=== PATIENT | female | born 1930 | race Caucasian/White ===

== ENCOUNTER 2016-09-11 23:29 | Inpatient (IN) | payer OTHER ==
[~2016-09-11] VITALS: Ht 154.9 cm; Wt 66.1 kg
[2016-09-12] VITALS (16 sets, daily range): BP systolic 93–195; BP diastolic 37–84
--- NOTE | 2016-09-12 04:07 | ED ORDER SUMMARY ---
..... Patient: MERLIN FORD OrderSheet [facility] VisitID: [id number] [place] [address] 85y, F Registration Date/Time: 09/11/2016 ORDER SHEET Weight: 69 kg (measured) Allergies: No Known Drug Allergy GENERAL ORDERS: Chest 1V Urgent (23:47 09/11/2016 Herman GUTIERREZ) (23:58 CHagerty ER Rivet Tosser) Crop Puller (Continuous) (23:47 09/11/2016 Herman GUTIERREZ) (0:09 CHagerty ER Rivet Tosser) Cardiac Panel Stat (23:47 09/11/2016 Herman GUTIERREZ) (Ack 23:58 CHagerty ER Rivet Tosser) (0:58 CHagerty ER Rivet Tosser) BNP Urgent (23:47 09/11/2016 Herman GUTIERREZ) (Ack 23:58 CHagerty ER Rivet Tosser) (0:58 CHagerty ER Rivet Tosser) Oxygen (2 L/min) (NC) (23:47 09/11/2016 Herman GUTIERREZ) (0:09 CHagerty ER Rivet Tosser) Pulse oximeter (23:47 09/11/2016 Herman GUTIERREZ) (0:09 CHagerty ER Rivet Tosser) EKG - ER Stat (23:47 09/11/2016 Herman GUTIERREZ) (0:09 CHagerty ER Rivet Tosser) PT with INR Urgent (03:56 09/12/2016 Herman GUTIERREZ) (Ack 3:58 CHagerty ER Rivet Tosser) (4:03 CHagerty ER Rivet Tosser) TSH Urgent (03:56 09/12/2016 Herman GUTIERREZ) (Ack 3:58 CHagerty ER Rivet Tosser) (4:03 CHagerty ER Rivet Tosser) Digoxin Level Urgent (03:59 09/12/2016 Herman GUTIERREZ) (4:03 CHagerty ER Rivet Tosser) MEDICATION ORDERS: IV FLUIDS: IV Saline Lock (23:47 09/11/2016 Herman GUTIERREZ) (23:50 DBeyoxana R.N.) Diltiazem IV 15 mg (HIGH ALERT MEDICATION, NOW) (04:01 09/12/2016 Herman GUTIERREZ) (4:08 DBeyer R.N.) ORDER SHEET NOTES: [Electronically signed by Darshan Lara R.N. (04:57 09/12/2016)] [Electronically signed by Lakeisha Capps MD (10:32 09/12/2016)] [Electronically locked/signed by Darshan Lara R.N. (04:57 09/12/2016)]
--- NOTE | 2016-09-12 04:07 | ED ORDER SUMMARY ---
..... Patient: MERLIN FORD OrderSheet [facility] VisitID: [id number] [place] [address] 85y, F Registration Date/Time: 09/11/2016 ORDER SHEET Weight: 69 kg (measured) Allergies: No Known Drug Allergy GENERAL ORDERS: Chest 1V Urgent (23:47 09/11/2016 Herman GUTIERREZ) (23:58 CHagerty ER Exercise Rider) Card Room Manager (Continuous) (23:47 09/11/2016 Herman GUTIERREZ) (0:09 CHagerty ER Exercise Rider) Cardiac Panel Stat (23:47 09/11/2016 Herman GUTIERREZ) (Ack 23:58 CHagerty ER Exercise Rider) (0:58 CHagerty ER Exercise Rider) BNP Urgent (23:47 09/11/2016 Herman GUTIERREZ) (Ack 23:58 CHagerty ER Exercise Rider) (0:58 CHagerty ER Exercise Rider) Oxygen (2 L/min) (NC) (23:47 09/11/2016 Herman GUTIERREZ) (0:09 CHagerty ER Exercise Rider) Pulse oximeter (23:47 09/11/2016 Herman GUTIERREZ) (0:09 CHagerty ER Exercise Rider) EKG - ER Stat (23:47 09/11/2016 Herman GUTIERREZ) (0:09 CHagerty ER Exercise Rider) PT with INR Urgent (03:56 09/12/2016 Herman GUTIERREZ) (Ack 3:58 CHagerty ER Exercise Rider) (4:03 CHagerty ER Exercise Rider) TSH Urgent (03:56 09/12/2016 Herman GUTIERREZ) (Ack 3:58 CHagerty ER Exercise Rider) (4:03 CHagerty ER Exercise Rider) Digoxin Level Urgent (03:59 09/12/2016 Herman GUTIERREZ) (4:03 CHagerty ER Exercise Rider) MEDICATION ORDERS: IV FLUIDS: IV Saline Lock (23:47 09/11/2016 Herman GUTIERREZ) (23:50 DBeyoxana R.N.) Diltiazem IV 15 mg (HIGH ALERT MEDICATION, NOW) (04:01 09/12/2016 Herman GUTIERREZ) (4:08 DBeyer R.N.) ORDER SHEET NOTES: [Electronically signed by Darshan Lara R.N. (04:57 09/12/2016)] [Electronically signed by Lakeisha Capps MD (10:32 09/12/2016)] [Electronically locked/signed by Darshan Lara R.N. (04:57 09/12/2016)]
--- NOTE | 2016-09-12 04:07 | ED CLINICAL REPORT ---
Clinical Report - Physicians/Mid Levels Formerly [facility] [address] [place] [address] 09/11/2016 23:37 Patient: MERLIN FORD Time Seen: 2336. Arrived- By ambulance. Historian- patient and EMS personnel. HISTORY OF PRESENT ILLNESS Chief Complaint: DYSPNEA. This started today and is still present. The dyspnea is described as moderate and is worsened by walking and exertion, is improved by rest and is improved with oxygen. No cough, sputum production, fever, sweating episodes or wheezing. No chills, chest pain or discomfort, calf pain or foot swelling. No anxiety, dizziness, tingling, numbness or palpitations. The patient has had dyspnea on exertion and orthopnea. Similar symptoms previously: Occasionally. Recent medical care: Not recently seen/assessed. REVIEW OF SYSTEMS The patient has not had weight loss. No muscle aches, eye irritation, sore throat, nasal discharge or sinus drainage. No nausea, vomiting, abdominal pain, diarrhea or black stools. No bloody stools, headache, fainting episodes, blurred vision or difficulty with urination. No skin rash, enlarged lymph nodes or joint pain. All systems otherwise negative, except as recorded above. PAST HISTORY Problems: Hypothyroidism. Arrhythmia. Congestive Heart Failure. Near Syncope. Diabetes Mellitus. Immunizations. Atrial Fibrillation. Hypertension. Additional Surgeries: Tonsillectomy. Medications: med list from pharmacy*. Carvedilol Oral (Tablet 12.5 mg) 1 tablet, twice daily. Carvedilol Oral (Tablet 6.25 mg) 1 tablet, twice daily. Digoxin Oral (Tablet 125 mcg) 1 tablet, 2x a day. Furosemide Oral 40 mg x3 tabs twice daily. HydrALAZINE HCl Oral (Tablet 25 mg) 1 tablet, twice daily. Isosorbide Mn Er 30mg x1 daily. Levothyroxine Sodium Oral 88 mcg, daily. Pravastatin Sodium Oral 40 mg, at bedtime. Warfarin Sodium Oral (Tablet 1 mg) 2 tablets along with a 1/2 of 5mg tabs , daily. Warfarin Sodium Oral 5 mg, daily. Allergies: No Known Drug Allergy. SOCIAL HISTORY Never smoker. No alcohol use or drug use. ADDITIONAL NOTES The nursing notes have been reviewed. PHYSICAL EXAM Vital Signs: 09/11/2016 23:43 BP: 162/117. HR: 110. RR: 28. O2 saturation: 89%. Temp: 99.1 F. Have been reviewed. Appearance: Alert. Patient in mild distress. Distress appears respiratory. Eyes: Pupils equal, round and reactive to light. Eyes normal inspection. ENT: Nose normal. Neck: Normal inspection. Neck supple. CVS: Tachycardia. Abnormal rhythm, which is irregularly irregular. Heart sounds normal. Pulses normal. Respiratory: Mild respiratory distress with tachypnea. Speaks short phrases. No accessory muscle use, retractions, anxiety, diaphoresis or hyperventilation. Mildly decreased air movement diffusely over both lungs. Breath sounds normal. No wheezes or rales. Abdomen: Soft and nontender. Back: Normal inspection. Skin: Skin warm and dry. Normal skin color. No rash. Normal skin turgor. Extremities: Extremities exhibit normal ROM. No lower extremity edema. Neuro: No motor deficit. No sensory deficit. (Grossly oriented.). LABS, X-RAYS, AND EKG EKG: EKG time: (0900). No acute ischemia. Rate: 110. Atrial fibrillation. Abnormal P waves. Normal QRS complex. Normal axis. Normal QT and QTc. Non-specific ST segment / T wave abnormalities. Prior EKG unavailable. The study has been interpreted contemporaneously by me. The study has been independently viewed by me. The EKG appears to be a good tracing. I agree with and confirm the computer reading of the EKG. Rhythm Strip #1: Time: (2340). Rate= 94. Atrial fibrillation. Narrow QRS complexes. Irregularly irregular rhythm. No ectopy. Conduction normal. Normal ST segments and T waves. The study was interpreted by me. Chest X-ray: Borderline cardiomegaly. Mediastinum normal. Great vessels normal. Soft tissues normal. No infiltrate. No fracture. No bony lesion present. (Mild CHF.). Views: AP (portable). Technique: good. The X-rays were independently viewed by me and interpreted contemporaneously by me. Prior films were not available for comparison. Laboratory Tests: CHEM 13 PANEL: (KARIN: 09/12/2016 00:30) ( MsgRcvd 09/12/2016 01:05) Final results Test Result Flag Units (Reference) GLUCOSE 208 H mg/dL (70-110) BUN 27 H mg/dL (7-18) CREATININE 1.3 mg/dL (0.6-1.3) Estimated GFR 41.48 mL/min Estimated GFR- 50.27 mL/min Note: Persistent reduction over 3 months in eGFR<60 mL/min/1.73 m2 defines CKD. Patients with eGFR values>=60 mL/min/1.73 m2 may also have CKD if evidence ofpersistent proteinuria. Additional information may be foundat www.[email or web address].org. SODIUM 135 L mmol/L (136-145) POTASSIUM 4.5 mmol/L (3.5-5.1) CHLORIDE 98 mmol/L (98-107) CARBON DIOXIDE 29 mmol/L (21-32) CALCIUM 8.4 L mg/dL (8.5-10.1) TOTAL PROTEIN 7.3 g/dL (6.4-8.2) ALBUMIN 3.3 g/dL (3.3-5.0) BILIRUBIN, TOTAL 0.9 mg/dL (0.0-1.0) ALKALINE PHOSPHATASE 106 U/L (46-116) AST (SGOT) 51 H U/L (15-37) ALT (SGPT) 40 U/L (12-78) MAGNESIUM 1.9 mg/dL (1.8-2.4) CPK 134 U/L (24-260) TROPONIN I 0.07 ng/mL (0.00-1.5) TROPONIN REFERENCE RANGE:<0.1 NEGATIVE0.1-1.5 INDETERMINANT>1.5 POSITIVE CBC w Diff: (KARIN: 09/11/2016 00:30) ( MsgRcvd 09/12/2016 00:48) Final results Test Result Flag Units (Reference) WHITE BLOOD COUNT 6.0 K/uL (4.5-11.5) RED BLOOD COUNT 4.00 M/uL (4.00-5.20) HEMOGLOBIN 11.1 L gm/dL (12.0-16.0) HEMATOCRIT 38.5 % (36.0-46.0) MEAN CELL VOLUME 96 fL (80-100) MEAN CORPUSCULAR HGB 28 pg (26-34) MEAN CORPUSCULAR HGB CONC 29 L g/dL (31-37) RED CELL DISTRIBUTION WIDTH 17.6 H % (11.6-14.8) PLATELET COUNT 38 L K/uL (150-400) LYMPH % 11.2 L % (25-40) MONO % 5.4 % (3-14) GRANULOCYTE % 83.4 (53-90) BNP: (KARIN: 09/11/2016 23:47) ( MsgRcvd 09/12/2016 01:06) Final results Test Result Flag Units (Reference) B-TYPE NATRIURETIC PEPTIDE 314 H pg/ml (5-100) INR 13.8 . Pulse Oximetry: 09/11/2016 23:43 O2 saturation: 89%. (FIO2 - room air). Interpretation: normal. PROGRESS AND PROCEDURES Course of Care: Pt had been given Lasix and SL NTG x 2 sprays, en-route. I did not intervene further, as pt was in minimal respiratory distress. Pt was observed in the ED, and worked up for her sx. BNP was modestly elevated, and CXR did show signs of mild CHF. Pt's BP remained high throughout her stay in the ED, and I did give her a dose of Diltiazem for this, as well as her mild RVR. Pt was found to be comfortable in bed, so she was gotten up to do a road test on RA. Pt did desat to 81% with ambulation, and was noted to have labored respirations and a sense of dyspnea for several minutes after walking to the bathroom and coming back to bed. At this point, I did feel the pt should be admitted for observation. After my conversation with Dr. Alan, pt's INR, which had been pending at the time, did come back at 13.8. These results were called up to the floor by our department. Discussed case with hospitalist, (Waqas). Reviewed test results and need for additional work-up. Agreed upon treatment plan and decision to admit. Health care provider will see patient in hospital. Patient and family counseled in person regarding the patient's stable but serious condition, test results, diagnosis and need for admission. Concerns were addressed. Old medical records reviewed. Disposition: Admitted to Acute Care. Condition: stable and serious. CLINICAL IMPRESSION Chronic mild systolic, congestive heart failure (with acute exacerbation). Chronic atrial fibrillation with uncontrolled rate. (with mild RVR). Accidental coumadin toxicity. Hypoxia. (Electronically signed by Lakeisha Capps MD 09/12/2016 10:32)
--- NOTE | 2016-09-12 04:07 | ED NURSING NOTES ---
Clinical Report - Nurses [facility] [address] [place] [address] 09/11/2016 23:37 [id number] Triage time 23:44 Sep 11 2016. Acuity: LEVEL 2. Chief Complaint: SHORTNESS OF BREATH and DIFFICULTY BREATHING. ( 02 sat 89% on RA placed on 3L increased to 93%). --23:48 Darshan Lara R.N. 23:43 09/11/16. BP: 162/117. HR: 110. RR: 28. O2 saturation: 89%. Temp: 99.1 F. Pain level now 0/10. --23:48 Darshan Lara R.N. Weight: 69 kg measured. Height/Length: 69 inches. BMI: 22.5. --23:48 Darshan Lara R.N. Medications med list from pharmacy*. Carvedilol Oral (Tablet 12.5 mg) 1 tablet, twice daily. Carvedilol Oral (Tablet 6.25 mg) 1 tablet, twice daily. Digoxin Oral (Tablet 125 mcg) 1 tablet, 2x a day. Furosemide Oral 40 mg x3 tabs twice daily. HydrALAZINE HCl Oral (Tablet 25 mg) 1 tablet, twice daily. Isosorbide Mn Er 30mg x1 daily. Levothyroxine Sodium Oral 88 mcg, daily. Pravastatin Sodium Oral 40 mg, at bedtime. Warfarin Sodium Oral (Tablet 1 mg) 2 tablets along with a 1/2 of 5mg tabs , daily. Warfarin Sodium Oral 5 mg, daily. --23:44 Darshan Lara R.N. Allergies No Known Drug Allergy. --23:44 Darshan Lara R.N. History Arrived by EMS. Historian: patient. Onset. (1 days). 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 (lasix 40mg). SOCIAL HX: Never smoker. No alcohol use or drug use. --23:48 Darshan aLra R.N. PROBLEMS: Muscle Spasm. Leukocytosis. Hypothyroidism. Arrhythmia. Congestive Heart Failure. Near Syncope. Pneumonia. Diabetes Mellitus. Immunizations. Atrial Fibrillation. Hypertension. Abnormal EKG. --23:45 Darshan Lara R.N. Assessment The patient states feels the same. --23:48 Darshan Lara R.N. Interventions ID band on patient. To treatment room. --23:48 Darshan Lara R.N. PHYSICAL ASSESSMENT 00:13 09/12/16. GENERAL / NEURO / PSYCH: Alert. Oriented X 4. Appears in no acute distress. RESPIRATORY: Mild respiratory distress. The patient can speak in full sentences. Decreased breath sounds. CVS: Cardiac rhythm: atrial pacing. Capillary refill less than 2 seconds. GI / : Abdomen nontender. SKIN: Skin is warm and dry. --00:13 Darshan Lara R.N. NURSING PROGRESS NOTES 23:35 09/11/2016 Site #1 started prior to arrival by EMS via IV in the right antecubital space with an 18g angiocath. --23:50 Darshan Lara R.N. EKG time: (8). EKG was ordered, performed by a tech and shown to the ED physician. --00:10 Tl Morejon, ER Hand Woodworking Sander ( Pt asleep in bed wakes to verbal stimuli, blood draw by RN). --00:35 Darshan Lara R.N. 00:34 09/12/16. BP: 143/83. HR: 95. RR: 18. O2 saturation: 98%. --00:35 Darshan Lara R.N. 01:55 09/12/16. BP: 152/73. HR: 90. O2 saturation: 98%. --01:56 Darshan Lara R.N. 02:27 09/12/16. BP: 157/84. HR: 80. RR: 18. O2 saturation: 99%. --02:27 Darshan Lara R.N. ( Pt ambulated to bathroom with portable 02, dropped to 81% , pt became short of breath hr increased to 120s, returned to room and placed on supplemental 02 and her oxygen saturation increased to 96%). --03:57 Darshan Lara R.N. 03:55 09/12/16. BP: 173/131. HR: 98. RR: 26. O2 saturation: 98%. Pain level now 0/10. --03:57 Darshan Lara R.N. 04:08 09/12/2016 Diltiazem IVP 15 mg given over 5 minute(s) via site #1. Allergies verified and confirmed 5 rights. IV patency established. IV site checked: no pain, redness, or swelling. IV flushed thoroughly pre- and post-medication administration. IVP given by RN. --04:08 Darshan Lara R.N. 04:11 09/12/16. BP: 183/107. HR: 87. --04:12 Darshan Lara R.N. 04:24 09/12/16. BP: 163/76. HR: 75. RR: 18. O2 saturation: 96%. Pain level now 0/10. --04:24 Darshan Lara R.N. DISPOSITION / DISCHARGE 04:26 09/12/16. ( Pt to be admitted for hypoxia on exertion, 02 sat decreased to 81% on ambulation. pt alert and oriented x4 able to transfer on her own). --04:26 Darshan Lara R.N. 04:26 09/12/16. BP: 163/76. HR: 75. RR: 18. O2 saturation: 96%. Temp: 98 F. Pain level now 0/10. --04:26 Darshan Lara R.N. 04:31 09/12/2016 Site #[address] upon admission. Good blood return present. Flushed with saline; flushes easily. --04:31 Darshan Lara R.N. Departure time: 04:Sep 12 2016. Report was given to a nurse via a phone call. Report included patient's care, treatment, medications, reviewed medication reconcilliation, and condition (including any recent changes or anticipated changes). All questions were answered. Report was acknowledged and care was transferred. ( gcs on discharge 15). --04:31 Darshan Lara R.N. Locked/Released at 09/12/2016 4:57 by Darshan Lara R.N.
--- NOTE | 2016-09-12 04:07 | ED NURSING NOTES ---
Clinical Report - Nurses [facility] [address] [place] [address] 09/11/2016 23:37 [id number] Triage time 23:44 Sep 11 2016. Acuity: LEVEL 2. Chief Complaint: SHORTNESS OF BREATH and DIFFICULTY BREATHING. ( 02 sat 89% on RA placed on 3L increased to 93%). --23:48 Darshan Lara R.N. 23:43 09/11/16. BP: 162/117. HR: 110. RR: 28. O2 saturation: 89%. Temp: 99.1 F. Pain level now 0/10. --23:48 Darshan Lara R.N. Weight: 69 kg measured. Height/Length: 69 inches. BMI: 22.5. --23:48 Darshan Lara R.N. Medications med list from pharmacy*. Carvedilol Oral (Tablet 12.5 mg) 1 tablet, twice daily. Carvedilol Oral (Tablet 6.25 mg) 1 tablet, twice daily. Digoxin Oral (Tablet 125 mcg) 1 tablet, 2x a day. Furosemide Oral 40 mg x3 tabs twice daily. HydrALAZINE HCl Oral (Tablet 25 mg) 1 tablet, twice daily. Isosorbide Mn Er 30mg x1 daily. Levothyroxine Sodium Oral 88 mcg, daily. Pravastatin Sodium Oral 40 mg, at bedtime. Warfarin Sodium Oral (Tablet 1 mg) 2 tablets along with a 1/2 of 5mg tabs , daily. Warfarin Sodium Oral 5 mg, daily. --23:44 Darshan Lara R.N. Allergies No Known Drug Allergy. --23:44 Darshan Lara R.N. History Arrived by EMS. Historian: patient. Onset. (1 days). 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 (lasix 40mg). SOCIAL HX: Never smoker. No alcohol use or drug use. --23:48 Darshan Lara R.N. PROBLEMS: Muscle Spasm. Leukocytosis. Hypothyroidism. Arrhythmia. Congestive Heart Failure. Near Syncope. Pneumonia. Diabetes Mellitus. Immunizations. Atrial Fibrillation. Hypertension. Abnormal EKG. --23:45 Darshan Lara R.N. Assessment The patient states feels the same. --23:48 Darshan Lara R.N. Interventions ID band on patient. To treatment room. --23:48 Darshan Lara R.N. PHYSICAL ASSESSMENT 00:13 09/12/16. GENERAL / NEURO / PSYCH: Alert. Oriented X 4. Appears in no acute distress. RESPIRATORY: Mild respiratory distress. The patient can speak in full sentences. Decreased breath sounds. CVS: Cardiac rhythm: atrial pacing. Capillary refill less than 2 seconds. GI / : Abdomen nontender. SKIN: Skin is warm and dry. --00:13 Darshan Lara R.N. NURSING PROGRESS NOTES 23:35 09/11/2016 Site #1 started prior to arrival by EMS via IV in the right antecubital space with an 18g angiocath. --23:50 Darshan Lara R.N. EKG time: (8). EKG was ordered, performed by a tech and shown to the ED physician. --00:10 Tl Morejon, ER Hip Hop Dancer ( Pt asleep in bed wakes to verbal stimuli, blood draw by RN). --00:35 Darshan Lara R.N. 00:34 09/12/16. BP: 143/83. HR: 95. RR: 18. O2 saturation: 98%. --00:35 Darshan Lara R.N. 01:55 09/12/16. BP: 152/73. HR: 90. O2 saturation: 98%. --01:56 Darshan Lara R.N. 02:27 09/12/16. BP: 157/84. HR: 80. RR: 18. O2 saturation: 99%. --02:27 Darshan Lara R.N. ( Pt ambulated to bathroom with portable 02, dropped to 81% , pt became short of breath hr increased to 120s, returned to room and placed on supplemental 02 and her oxygen saturation increased to 96%). --03:57 Darshan Lara R.N. 03:55 09/12/16. BP: 173/131. HR: 98. RR: 26. O2 saturation: 98%. Pain level now 0/10. --03:57 Darshan Lara R.N. 04:08 09/12/2016 Diltiazem IVP 15 mg given over 5 minute(s) via site #1. Allergies verified and confirmed 5 rights. IV patency established. IV site checked: no pain, redness, or swelling. IV flushed thoroughly pre- and post-medication administration. IVP given by RN. --04:08 Darshan Lara R.N. 04:11 09/12/16. BP: 183/107. HR: 87. --04:12 Darshan Lara R.N. 04:24 09/12/16. BP: 163/76. HR: 75. RR: 18. O2 saturation: 96%. Pain level now 0/10. --04:24 Darshan Lara R.N. DISPOSITION / DISCHARGE 04:26 09/12/16. ( Pt to be admitted for hypoxia on exertion, 02 sat decreased to 81% on ambulation. pt alert and oriented x4 able to transfer on her own). --04:26 Darshan Lara R.N. 04:26 09/12/16. BP: 163/76. HR: 75. RR: 18. O2 saturation: 96%. Temp: 98 F. Pain level now 0/10. --04:26 Darshan Lara R.N. 04:31 09/12/2016 Site #[address] upon admission. Good blood return present. Flushed with saline; flushes easily. --04:31 Darshan Lara R.N. Departure time: 04:Sep 12 2016. Report was given to a nurse via a phone call. Report included patient's care, treatment, medications, reviewed medication reconcilliation, and condition (including any recent changes or anticipated changes). All questions were answered. Report was acknowledged and care was transferred. ( gcs on discharge 15). --04:31 Darshan Lara R.N. Locked/Released at 09/12/2016 4:57 by Darshan Lara R.N.
--- NOTE | 2016-09-12 08:47 | History & Physical Report ---
Admission Admit Date 09/12/16 Information Source Information Source: Self Reliability: Good History Chief Complaint SOB History of Present Illness 85 y/o female patient with PMH of Diabetes Mellitus, Hypertension, H/O CAD with stent palcement, atrial fibrillation on coumadin, hypothyroidism, cardiomyopathy BIBA to [facility] ED with the complaint of SOB. On intial eval in ED she was found to have acute exacerabtion of CHF, with uncontrolled hypertension and supratherapeutic INR of 13. She recieved 1 dose of lasix in ED. On floor she recieved IV vit k and hydralazine, and 1 unit of FFP. History of present illness goes like this, as per patient she was Fine until 2 days back when she started to to feel sick with sore throat and feverish sensation she thought she got flu as her daughter is sick with influenza. Then yesterday she started feeling SOB and it has gotten worse and she is brought to [facility] ED. She also says that she had chest pain day before yesterday which was mild left sided chest pain, lasted for a while and resolved on its own. She c/o dry cough. She deneis any other symptoms. Patient History 1. Diabetes mellitus 2. Hypertension 3. Atrial fibrillation 4. CHF (congestive heart failure) 5. Hyperlipidemia Social History Lives with daughter community never smoked no alcohol no drugs Family History MOTHER (CAD). FATHER (lung cancer). Medications and Allergies Medications Current Medications Sig/Nilson Start time Last Medication Dose Route Stop Time Status Admin Pantoprazole Sodium 40 MG DAILY@0600 09/13 0600 AC IV Insulin Glargine 25 UNITS QHS 09/12 2100 AC SC Atorvastatin Calcium 10 MG QPM 09/12 1800 AC PO Digoxin 125 MCG DAILY@1400 09/12 1400 AC PO Insulin Human Lispro See Dose ACHS 09/12 1130 AC Insts (1) SC Candesartan Cilexetil 16 MG DAILY 09/12 1000 AC PO Carvedilol 6.25 MG BID 09/12 1000 AC PO Furosemide 40 MG DIUB 09/12 1000 AC IV Hydralazine HCl 25 MG BID 09/12 1000 AC PO Levothyroxine Sodium 88 MCG DAILY@0600 09/12 1000 AC PO Non-Formulary 40 MG DAILY 09/12 0914 CAN Medication PO Non-Formulary 100 MG DAILY 09/12 0913 CAN Medication PO Isosorbide 30 MG DAILY 09/12 910 AC Mononitrate PO Acetaminophen 650 MG Q4H PRN 09/12 900 AC PO Albuterol/Ipratropium 3 ML Q6H PRN 09/12 900 AC 09/12 IN 922 Docusate Sodium 100 MG BID 09/12 900 AC PO Morphine Sulfate 1 MG Q2H PRN 09/12 900 AC IV Naloxone HCl 0.4 MG PRN PRN 09/12 900 AC IV Ondansetron HCl 4 MG Q6H PRN 09/12 900 AC IV Sodium Chloride 1,000 ML ASDIRECTED 09/12 900 AC IV Hydralazine HCl 10 MG Q6H PRN 09/12 545 AC 09/12 IV 0547 Dose Instructions: (1)Insulin Human Lispro: LOW DOSE SLIDING SCALE Allergies Coded Allergies: No Known Drug Allergy (09/12/16) Review of Systems Constitutional Fever. Denies: Chills, Sweats. ENT Denies: Nasal Congestion, Mouth Pain, Throat Pain, Throat Swelling. Respiratory Cough, Dry, SOB w/exertion, Pleuritic Pain. Denies: Wheezing, Hemoptysis. Cardiovascular Orthopnea, PND, Edema. Denies: Chest Pain, Palpitations. Gastrointestinal Denies: Nausea, Vomiting, Abdominal Pain, Diarrhea, Constipation. Genitourinary Denies: Dysuria, Frequency, Incontinence. Musculoskeletal Back Pain. Denies: Arm Pain. Neurological Denies: Weakness, Numbness, Incoordination, Change in speech, Confusion, Seizures. Physical Exam Vital Signs / I&Os Vital Signs Date Time Temp Pulse Resp B/P Pulse O2 O2 Flow FiO2 Ox Delivery Rate 09/12 0751 97.7 09/12 0747 96 22 156/64 99 Nasal 1.5 Cannula 09/12 0642 97.9 95 24 141/56 99 Nasal 2.0 Cannula 09/12 0624 98.1 105 20 156/58 98 Nasal 2.0 Cannula 09/12 0610 82 139/40 09/12 0558 Nasal 2.0 Cannula 09/12 0547 184/63 09/12 0520 2.0 09/12 0516 82 184/63 09/12 0455 98.1 83 20 195/59 95 Nasal 2.0 Cannula General Appearance Alert, Oriented X3, No acute distress HEENT PERRLA, Moist mucous membranes Lungs bilateral basal crackles Cardiovascular Regular rate and rhythm, Normal S1 and S2 Abdomen Soft, No tenderness, No guarding, No rebound Extremities trace oedema Neurological No lateralizing signs LAB Results Laboratory Tests 09/11 09/12 09/12 09/12 0407 0030 0030 0918 Chemistry Plasma Sodium (136 - 145 mmol/L) 135 Plasma Potassium (3.5 - 5.1 mmol/L) 4.5 Plasma Chloride (98 - 107 mmol/L) 98 CO2 (Enzymatic) (21 - 32 mmol/L) 29 BUN (7 - 18 mg/dL) 27 Creatinine (0.6 - 1.3 mg/dL) 1.3 Est GFR ( Amer) (mL/min) 50.27 Est GFR (Non-Af Amer) (mL/min) 41.48 Glucose (70 - 110 mg/dL) 208 Plasma Calcium (8.5 - 10.1 mg/dL) 8.4 Plasma Magnesium (1.8 - 2.4 mg/dL) 1.9 Total Bilirubin (0.0 - 1.0 mg/dL) 0.9 AST (15 - 37 U/L) 51 ALT (12 - 78 U/L) 40 Alkaline Phosphatase (46 - 116 U/L) 106 Creatine Kinase (24 - 260 U/L) 134 166 Troponin (0.00 - 1.5 ng/mL) 0.07 0.10 B-Natriuretic Peptide (5 - 100 pg/ml) 314 Total Protein (6.4 - 8.2 g/dL) 7.3 Albumin (3.3 - 5.0 g/dL) 3.3 TSH 3rd Generation (0.30 - 3.74 uIU/mL) 0.815 Coagulation INR (0.8 - 1.2) 13.8 1.5 Toxicology Digoxin (0.9 - 2.0 ng/mL) 0.6 Microbiology Date/Time Procedure - Status Source Growth 09/12 0455 MRSA Screen - RECD NASAL Imaging DATE OF EXAM(S): 09/11/16 PROCEDURE: XR CHEST 1 VIEW INDICATION: SHORTNESS OF BREATH IMPRESSION: 1. Chronically coarse interstitial markings. This may reflect mild, chronic CHF. 2. Mild cardiomegaly. Assessment and Plan Problem List 1. Acute respiratory failure with hypoxia Plan moniotr in ccu Ptaient is on 5 litres of oxygen through nasal canula c/w oxygen supplements keep sats >95% pulse oximetry monitoring 2. Acute exacerbation of CHF (congestive heart failure) Plan Start lasix 40 mg BID c/w imdur, hydralazine, coozar and coreg r/o acute ischemia serial trops and development associate daily weight and I/o's c/w supplemental oxygen echo in am 3. Supratherapeutic INR Plan Patient admitted with INR of 13 recieved vit K 5mg and 1 Unit of FFP, repeat INR 1.5 Resume home dose coumadin from tonight 4. Atrial fibrillation Status Chronic Plan afib with rate control admited with high INR, which is correct current INR is 1.5 can resume home dose of coumadin from tonight c/w rate control meds 5. Hypertension Plan BP on lower side monitor for now hold BP meds if SBP<100, keep MAP >95% 6. Diabetes mellitus Plan Monitor BS qachs c/w home dose of lantus with sliding scale insulin check HbA1c 7. Hyperlipidemia Plan c/w statin check lipid profile DVT Px: SCD's GI px: PPI Patient's condition: Guarded Anticipated discharge: 2-3 days 8. CKD (chronic kidney disease) stage 2, GFR 60-89 ml/min Plan stable monitor kidney function I/o's daily weights E&M Codes Admission: Inpt-High/96320
--- NOTE | 2016-09-12 09:03 | DIAGNOSTIC IMAGING REPORT ---
PROCEDURE: XR CHEST 1 VIEW INDICATION: SHORTNESS OF BREATH TECHNIQUE: Single view chest. 2352 hours COMPARISON: 03/31/2016 FINDINGS: Mild cardiomegaly. Atherosclerotic, normal caliber thoracic aorta. Slight central vascular prominence. Mild diffuse coarsening of the interstitial markings. Clearance of prior right lower lung retrocardiac pneumonia. No dense consolidations, effusions, or pneumothorax. Intact osseous structures. IMPRESSION: 1. Chronically coarse interstitial markings. This may reflect mild, chronic CHF. 2. Mild cardiomegaly.
--- NOTE | 2016-09-12 10:33 | ED DISCHARGE INSTRUCTIONS ---
Patient: MERLIN FORD General Instructions [facility] VisitID: [id number] [address] [place] [address] 85y, F Registration Date/Time: 09/11/2016 Chronic mild systolic, congestive heart failure (with acute exacerbation). Chronic atrial fibrillation with uncontrolled rate. (with mild RVR). Accidental coumadin toxicity. Hypoxia. (Electronically signed by Lakeisha Capps MD 09/12/2016 10:32)
--- NOTE | 2016-09-12 10:33 | ED DISCHARGE INSTRUCTIONS ---
Patient: MERLIN FORD General Instructions [facility] VisitID: [id number] [address] [place] [address] 85y, F Registration Date/Time: 09/11/2016 Chronic mild systolic, congestive heart failure (with acute exacerbation). Chronic atrial fibrillation with uncontrolled rate. (with mild RVR). Accidental coumadin toxicity. Hypoxia. (Electronically signed by Lakeisha Capps MD 09/12/2016 10:32)
--- NOTE | 2016-09-12 10:33 | ED MED RECONCILIATION SUMMARY ---
Patient: MERLIN FORD Medication Reconciliation Report [facility] VisitID: [id number] [address] [place] [address] 85y, F Registration Date/Time: 09/11/2016 Weight: 69 kg Height/Length: 69 in. BMI: 22.5 ALLERGIES: No Known Drug Allergy The patient's Home Medications are listed below: THE FOLLOWING MEDICATIONS NEED TO BE RECONCILED: med list from pharmacy* Carvedilol Oral (12.5 mg) 1 tablet, twice daily Carvedilol Oral (6.25 mg) 1 tablet, twice daily Digoxin Oral (125 mcg) 1 tablet, 2x a day Furosemide Oral 40 mg x3 tabs twice daily HydrALAZINE HCl Oral (25 mg) 1 tablet, twice daily Isosorbide Mn Er 30mg x1 daily Levothyroxine Sodium Oral 88 mcg, daily Pravastatin Sodium Oral 40 mg, at bedtime Warfarin Sodium Oral (1 mg) 2 tablets along with a 1/2 of 5mg tabs , daily Warfarin Sodium Oral 5 mg, daily The source(s) of the original Home Medication information: Not obtained. The following Medications were given to the patient in the Emergency Department: Diltiazem [IVP] IVP 15 mg, administered: 09/12/2016 4:08:00 AM The following Medications were prescribed to the patient: None.
--- NOTE | 2016-09-12 10:33 | ED MAR SUMMARY ---
..... Medication Administration Record [facility] [address] [place] [address] Patient: MERLIN FORD Visit ID: [id number] 85y, F Weight: 69.0 kg Height/Length: 69 in BMI: 22.5 ALLERGIES: No Known Drug Allergy Given 04:08 09/12/2016 Darshan Lara R.N. Medication Administered: DILTIAZEM [IVP], Dose: 15 mg IVP over 5 minute(s), Site: #1 right AC. Medication Ordered: Diltiazem IV 15 mg (HIGH ALERT MEDICATION, NOW).
--- NOTE | 2016-09-12 10:33 | ED MED RECONCILIATION SUMMARY ---
Patient: MERLIN FORD Medication Reconciliation Report [facility] VisitID: [id number] [address] [place] [address] 85y, F Registration Date/Time: 09/11/2016 Weight: 69 kg Height/Length: 69 in. BMI: 22.5 ALLERGIES: No Known Drug Allergy The patient's Home Medications are listed below: THE FOLLOWING MEDICATIONS NEED TO BE RECONCILED: med list from pharmacy* Carvedilol Oral (12.5 mg) 1 tablet, twice daily Carvedilol Oral (6.25 mg) 1 tablet, twice daily Digoxin Oral (125 mcg) 1 tablet, 2x a day Furosemide Oral 40 mg x3 tabs twice daily HydrALAZINE HCl Oral (25 mg) 1 tablet, twice daily Isosorbide Mn Er 30mg x1 daily Levothyroxine Sodium Oral 88 mcg, daily Pravastatin Sodium Oral 40 mg, at bedtime Warfarin Sodium Oral (1 mg) 2 tablets along with a 1/2 of 5mg tabs , daily Warfarin Sodium Oral 5 mg, daily The source(s) of the original Home Medication information: Not obtained. The following Medications were given to the patient in the Emergency Department: Diltiazem [IVP] IVP 15 mg, administered: 09/12/2016 4:08:00 AM The following Medications were prescribed to the patient: None.
--- NOTE | 2016-09-12 10:33 | ED MAR SUMMARY ---
..... Medication Administration Record [facility] [address] [place] [address] Patient: MERLIN FORD Visit ID: [id number] 85y, F Weight: 69.0 kg Height/Length: 69 in BMI: 22.5 ALLERGIES: No Known Drug Allergy Given 04:08 09/12/2016 Darshan Lara R.N. Medication Administered: DILTIAZEM [IVP], Dose: 15 mg IVP over 5 minute(s), Site: #1 right AC. Medication Ordered: Diltiazem IV 15 mg (HIGH ALERT MEDICATION, NOW).
[2016-09-13] VITALS (15 sets, daily range): BP systolic 109–156; BP diastolic 38–81
[2016-09-13] MEDS ORDERED: CARVEDILOL6.25 MG PO (13:01)
[2016-09-13] MEDS ORDERED: CARVEDILOL12.5 MG PO (13:01)
[2016-09-13] MEDS ORDERED: DIGOXIN0.125 MG PO ×2 (13:02→14:14)
[2016-09-13] MEDS ORDERED: ISOSORBIDE MONO30 MG PO (13:03)
[2016-09-13] MEDS ORDERED: HYDRALAZINE HCL25 MG PO (13:03)
[2016-09-13] MEDS ORDERED: FUROSEMIDE40 MG PO (13:03)
[2016-09-13] MEDS ORDERED: PRAVASTATIN SOD40 MG PO (13:04)
[2016-09-13] MEDS ORDERED: LEVO-T88 MCG PO (13:04)
[2016-09-13] MEDS ORDERED: COUMADIN2.5 MG PO (13:05)
--- NOTE | 2016-09-13 13:12 | DIAGNOSTIC IMAGING REPORT ---
REFERRING PHYSICIAN/PROVIDER: Lakeisha Capps Md CONSULTING ROUGH ROUNDER MACHINE: Remberto Kaiser MD PROCEDURE: 2D echo, M-mode and complete color and flow Doppler interrogation TECHNICAL QUALITY: Technically difficult INDICATION: Heart failure with aortic stenosis INTERPRETATIONS: CHAMBERS: LEFT ATRIUM: Left atrial enlargement. Possible interatrial communication by color Doppler. LEFT VENTRICLE: Small left ventricle, concentric left ventricular hypertrophy. Indeterminate diastology. EF visually estimated to be 60-65%. No wall motion abnormalities. RIGHT ATRIUM: Normal right atrial size. RIGHT VENTRICLE: Normal right ventricular size. VALVES: All valves nonrheumatic unless otherwise indicated. AORTIC VALVE: Heavily calcified aortic valve with severely restricted leaflet motion. Severe aortic stenosis with peak velocity 4.3 m/s, mean gradient 44 mmHg, calculated aortic valve area 0.48 cm2. MITRAL VALVE: Mitral annular calcification. Trace mitral regurgitation, no mitral stenosis. TRICUSPID VALVE: Mild tricuspid regurgitation. Unable to calculate pulmonary artery systolic pressure due to inadequate tricuspid regurgitation jet. PULMONIC VALVE: Trace pulmonic regurgitation. MISCELLANEOUS: No pericardial effusion. HEMODYNAMICS: Dilated IVC with <50% inspiratory collapse. CVP 10-15 mmHg IMPRESSION: Underlying rhythm is atrial fibrillation. 1. Small, concentrically hypertrophied left ventricle with normal systolic function. EF 60-65%. No wall motion abnormalities. 2. Indeterminate diastolic function, due to underlying arrhythmia. 3. Severe aortic stenosis with peak velocity of 4.3 m/s, mean gradient 44 mmHg, and calculated aortic valve area of 0.48 cm2. 4. Mitral annular calcification. 5. Normal right ventricular size and systolic function. 6. Unable to estimate pulmonary artery systolic pressure due to inadequate tricuspid regurgitation jet. 7. Possible interatrial communication concerning for PFO by color Doppler, clinical correlation advised. 8. CVP 10-15 mmHg.
--- NOTE | 2016-09-13 19:58 | Progress Note ---
Subjective General patient is seen at the bedside, c/o sob with cough Refused new anticoagulation and wants to to continue on coumadin Constitutional Denies: Fever, Chills, Sweats, Weakness. Respiratory Cough, Dry, SOB w/exertion, Wheezing. Cardiovascular Orthopnea, Edema. Denies: Chest Pain, Palpitations, PND. Gastrointestinal Denies: Nausea, Vomiting, Abdominal Pain, Diarrhea, Constipation. Genitourinary Denies: Dysuria, Frequency, Incontinence, Hematuria. Physical Exam Vital Signs / I&Os Vital Signs Date Time Temp Pulse Resp B/P Pulse O2 O2 Flow FiO2 Ox Delivery Rate 09/13 1815 98.6 82 30 130/46 97 Nasal 2.0 Cannula 09/13 1413 83 09/13 1350 98 27 121/44 98 Nasal 2.0 Cannula 09/13 1141 94 22 142/69 98 Nasal 2.0 Cannula 09/13 1000 98.2 79 22 115/53 100 Nasal 2.0 Cannula 09/13 0900 88 24 109/41 97 Nasal 2.0 Cannula 09/13 0820 Nasal 2.0 Cannula 09/13 0808 89 09/13 0808 156/59 09/13 0804 2.0 09/13 0800 94 23 156/59 97 Nasal 2.0 Cannula 09/13 0700 90 25 141/47 99 OXYMASK 2.0 09/13 0652 26 99 OXYMASK 2.0 09/13 0600 90 25 141/44 98 Mask 3.5 09/13 0514 99.0 87 25 138/54 98 09/13 0458 5.0 09/13 0408 86 24 136/45 98 Mask 5.0 09/13 0300 84 134/42 99 09/13 0200 104 28 123/38 99 Mask 5.0 09/13 0141 103 09/13 0100 137/60 09/13 0055 5.0 09/13 0048 2.0 09/13 0013 65 32 149/81 99 Nasal 2.0 Cannula 09/12 2312 99.5 79 28 141/47 99 Nasal 2.0 Cannula 09/128 100.0 95 31 146/84 96 Nasal 2.0 Cannula 09/12 2104 Nasal 2.0 Cannula 09/12 2101 98.2 103 24 173/57 99 Nasal 2.0 Cannula 09/12 2056 152/76 09/12 2055 109 09/12 2034 2.0 09/12 2003 104 I&O 09/12 0800 09/12 1600 09/13 0000 Intake Total 500 Output Total 700 575 Balance -200 -575 General Appearance Alert, Oriented X3, No acute distress HEENT PERRLA, Moist mucous membranes Lungs basal crackles present Neck Supple Cardiovascular irregular heart beat Abdomen Soft, No tenderness, No guarding Extremities oedema present Neurological No lateralizing signs LAB Results Laboratory Tests 09/13 09/13 09/13 09/13 0050 0450 0450 0450 Chemistry Plasma Sodium (136 - 145 mmol/L) 137 Plasma Potassium (3.5 - 5.1 mmol/L) 3.9 Plasma Chloride (98 - 107 mmol/L) 100 CO2 (Enzymatic) (21 - 32 mmol/L) 33 BUN (7 - 18 mg/dL) 38 Creatinine (0.6 - 1.3 mg/dL) 1.3 Est GFR ( Amer) (mL/min) 50.27 Est GFR (Non-Af Amer) (mL/min) 41.48 Glucose (70 - 110 mg/dL) 226 Hemoglobin A1c % (4.5 - 6.2 %) 9.3 Plasma Calcium (8.5 - 10.1 mg/dL) 8.2 Plasma Magnesium (1.8 - 2.4 mg/dL) 2.0 Creatine Kinase (24 - 260 U/L) 166 Troponin (0.00 - 1.5 ng/mL) 0.11 B-Natriuretic Peptide (5 - 100 pg/ml) 362 Triglycerides (30 - 200 mg/dL) 104 Cholesterol (140 - 200 mg/dL) 127 LDL Cholesterol, Calc (mg/dL) Pending HDL Cholesterol (32 - 96 mg/dL) Pending LDL/HDL Ratio Pending Cholesterol/HDL Ratio Pending Coronary Risk Interp (0.4 - 1.0) Pending Coagulation INR (0.8 - 1.2) 1.2 Hematology WBC (4.5 - 11.5 K/uL) 9.0 RBC (4.00 - 5.20 M/uL) 3.50 Hgb (12.0 - 16.0 gm/dL) 10.7 Hct (36.0 - 46.0 %) 33.5 MCV (80 - 100 fL) 96 MCH (26 - 34 pg) 31 RDW (11.6 - 14.8 %) 15.4 Neut % (Auto) (50 - 75 %) 78.4 Lymph % (Auto) (25 - 40 %) 8.0 [place] % (Auto) (3 - 14 %) 13.6 Eos % (Auto) (0 - 4 %) 0 Baso % (Auto) (0 - 2 %) 0 Plt Count, EDTA (150 - 400 K/uL) 158 PUBS MCHC (31 - 37 g/dL) 32 Assessment and Plan Problem List 1. Acute exacerbation of CHF (congestive heart failure) Plan patient with positive balance give 20mg extra dose of lasix c/w lasix 40 mg BID daily weight and I/o's duo nebs q6hrly ECHO suggestive of severe aortic stenosis 2. Atrial fibrillation Status Chronic Plan rate controlled started on coumadin and heparin drip stop heparin drip once INR is therapeutic c/w coreg and digoxin for rate control check digoxin levels in am 3. CKD (chronic kidney disease) stage 2, GFR 60-89 ml/min Plan remains elevated monitor kidney function I/o's and daily weight 4. Hypertension Plan on coreg, hydralazine c/w it 5. Diabetes mellitus Plan c/w insulin 6. Elevated troponin Plan patient denies any chest pain possible demand ischemia EKG no ischemic changes, atril flutter rhythm monitor troponins c/w heprin drip for 48 hrs c/w coreg, ntg and statin E&M Codes Rounding: Inpt-High/39997
[2016-09-14] VITALS (7 sets, daily range): BP systolic 109–138; BP diastolic 35–52
--- NOTE | 2016-09-14 14:12 | Progress Note ---
Subjective General Pt states she is feeling much better at this time. She states her shortness of breath has improved. She continues to complain of a productive cough however. Pt denies any fever overnight. She deneis any palpitations. No other concerns or complaints at this time. Physical Exam Vital Signs / I&Os Vital Signs Date Time Temp Pulse Resp B/P Pulse O2 O2 Flow FiO2 Ox Delivery Rate 09/14 0950 97 21 122/42 98 Nasal 2.5 Cannula 09/14 0940 96 09/14 0940 127/52 09/14 0814 2.5 09/14 0641 99.1 92 22 127/52 100 Nasal 2.5 Cannula 09/14 0239 99.1 82 22 116/35 100 Nasal 2.5 Cannula 09/14 0131 2.5 09/13 2324 85 09/13 2324 127/49 09/13 2232 98.8 85 23 49 99 Nasal 2.5 Cannula 09/13 2101 Nasal 2.5 Cannula 09/13 2013 3.0 09/13 1815 98.6 82 30 130/46 97 Nasal 2.0 Cannula 09/13 1413 83 I&O 09/14 0000 09/13 1600 09/13 0800 Intake Total 600 1200 450 Output Total 750 400 600 Balance -150 800 -150 Other GENERAL: NAD; Pt laying comfortably in bed HEENT: AT/NC; PERRLA, EOMI; MM Moist CARDIAC: Irregulary irregular, No M/R/G appreciated PULM: Rhonchi present at bilateral bases with mild expiratory wheezes bilaterally ABD: Soft, NT, ND, Positive BS in all quadrants; No hepatosplenomegaly appreciated EXT: No C/C/E in bilateral upper and lower extremity; No calve tenderness bilaterally SKIN: Warm, dry, pink, and intact NEURO: Alert and oriented x3; Following all commands PSYCH: Normal mood and affect LAB Results Laboratory Tests 09/14 09/14 09/14 09/13 1200 0355 5 2019 Chemistry Plasma Sodium (136 - 145 mmol/L) 139 Plasma Potassium (3.5 - 5.1 mmol/L) 3.2 Plasma Chloride (98 - 107 mmol/L) 99 CO2 (Enzymatic) (21 - 32 mmol/L) 36 BUN (7 - 18 mg/dL) 42 Creatinine (0.6 - 1.3 mg/dL) 1.1 Est GFR ( Amer) (mL/min) >60 Est GFR (Non-Af Amer) (mL/min) 50.29 Glucose (70 - 110 mg/dL) 151 Plasma Calcium (8.5 - 10.1 mg/dL) 8.1 Troponin (0.00 - 1.5 ng/mL) 0.10 Coagulation INR (0.8 - 1.2) 1.1 APTT (24 - 34 SECONDS) 135 92 41 Hematology WBC (4.5 - 11.5 K/uL) 8.9 RBC (4.00 - 5.20 M/uL) 3.41 Hgb (12.0 - 16.0 gm/dL) 10.3 Hct (36.0 - 46.0 %) 32.6 MCV (80 - 100 fL) 96 MCH (26 - 34 pg) 30 RDW (11.6 - 14.8 %) 15.6 Neut % (Auto) (50 - 75 %) 71.3 Lymph % (Auto) (25 - 40 %) 15.4 [place] % (Auto) (3 - 14 %) 12.3 Eos % (Auto) (0 - 4 %) 0.5 Baso % (Auto) (0 - 2 %) 0.5 Plt Count, EDTA (150 - 400 K/uL) 161 PUBS MCHC (31 - 37 g/dL) 32 Assessment and Plan Problem List 1. Acute exacerbation of CHF (congestive heart failure) Plan - Improving - Stop IV Lasix now - Start home Lasix 120 mg PO BID now - Check daily weight - Monitor I's and O's closely - ECHO showed preserved LV function with an EF of 60-65% - Continue Coreg - Continue Candesartan 2. Acute respiratory failure with hypoxia Plan - Continue supplemental O2 to keep SpO2 greater than 92% - Continue breathing treatments PRN - This is likely secondary to an acute CHF exacerbation, see #1 3. Hypokalemia Plan - Replace with IV KCl 40 mEq now - Recheck BMP in AM - Continue telemetry monitoring 4. Atrial fibrillation Status Chronic Plan - Rate controlled - Continue home Digoxin - Continue home Coreg - Continue Heparin drip for now - Continue daily Warfarin, Pharmacy is dosing this - INR today is subtherapeutic - Recheck INR in AM 5. Hypertension Plan - Well controlled - Continue home Candesartan, Coreg and Hydralazine 6. Diabetes mellitus Plan - Continue checking FSBS q AC and HS - Continue medium-dose SSI for now 7. Aortic valve stenosis Plan - ECHO shows this to be severe - Pt will need to follow-up with her Gaming Investigator as an outpatient for this
[2016-09-15 02:18] VITALS: BP 133/44
[2016-09-15 07:41] VITALS: BP 183/60
--- NOTE | 2016-09-15 07:42 | DIAGNOSTIC IMAGING REPORT ---
PROCEDURE: XR CHEST 1 VIEW INDICATION: Shortness of breath. Follow-up CHF. TECHNIQUE: Portable AP view (0530 hours). COMPARISON: Compared to chest x-ray on 09/11/2016 and 03/31/2016. FINDINGS: Lungs are clear. Mild cardiomegaly. Mediastinum is normal. Mild degenerate change of the thoracic spine. IMPRESSION: 1. Mild cardiomegaly. 2. Otherwise negative chest.
[2016-09-15 10:31] VITALS: BP 136/40
--- NOTE | 2016-09-15 12:45 | Progress Note ---
Subjective General Pt states she is feeling somewhat better. She was able to ambulate this morning , however RN reports when she did this her SpO2 fell to 81% while off supplemental O2. She otherwise states her cough is improved. No other complaints or concerns at this time. Physical Exam Vital Signs / I&Os Vital Signs Date Time Temp Pulse Resp B/P Pulse O2 O2 Flow FiO2 Ox Delivery Rate 09/15 1031 97.9 86 26 136/40 90 Nasal Cannula 09/15 0830 1.5 09/15 0821 180/60 09/15 0820 101 09/15 0800 1.0 09/15 0744 1.0 09/15 0741 99.1 87 28 183/60 94 Nasal 1.0 Cannula 09/15 0218 98.1 85 24 133/44 92 Nasal 1.0 Cannula 09/15 0129 2.0 09/14 2234 97.9 89 32 123/48 94 Nasal 1.0 Cannula 09/14 2108 101 09/14 2108 138/48 09/14 2048 1.0 09/14 2045 98.6 92 24 138/48 95 Nasal 1.0 Cannula 09/14 1946 1.0 09/14 1854 98.2 96 25 121/42 93 Nasal 1.0 Cannula 09/14 1502 98.1 88 24 109/40 99 Nasal 2.5 Cannula 09/14 1456 97 09/14 1415 2.5 I&O 09/15 0000 09/14 1600 09/14 0800 Intake Total 1036 960 496 Output Total 300 400 700 Balance 736 560 -204 Other GENERAL: NAD; Pt laying comfortably in bed HEENT: AT/NC; PERRLA, EOMI; MM Moist CARDIAC: RRR, No M/R/G appreciated PULM: Faint wheezing at bilateral bases; No crackles appreciated NEURO: Alert and oriented x3; Following all commands PSYCH: Normal mood and affect LAB Results Laboratory Tests 09/15 09/15 09/15 09/15 09/14 1200 0920 0335 0330 2040 Chemistry Plasma Sodium (136 - 145 mmol/L) 139 Plasma Potassium (3.5 - 5.1 mmol/L) 4.0 Plasma Chloride (98 - 107 mmol/L) 101 CO2 (Enzymatic) (21 - 32 mmol/L) 31 BUN (7 - 18 mg/dL) 41 Creatinine (0.6 - 1.3 mg/dL) 1.1 Est GFR ( Amer) (mL/min) >60 Est GFR (Non-Af Amer) (mL/min) 50.29 Glucose (70 - 110 mg/dL) 207 Plasma Calcium (8.5 - 10.1 mg/dL) 8.0 Coagulation INR (0.8 - 1.2) 1.2 APTT (24 - 34 SECONDS) Cancelled 62 Cancelled 104 Hematology WBC (4.5 - 11.5 K/uL) 7.7 RBC (4.00 - 5.20 M/uL) 3.30 Hgb (12.0 - 16.0 gm/dL) 10.1 Hct (36.0 - 46.0 %) 31.5 MCV (80 - 100 fL) 95 MCH (26 - 34 pg) 31 RDW (11.6 - 14.8 %) 15.3 Neut % (Auto) (50 - 75 %) 65.3 Lymph % (Auto) (25 - 40 %) 18.9 [place] % (Auto) (3 - 14 %) 14.9 Eos % (Auto) (0 - 4 %) 0.7 Baso % (Auto) (0 - 2 %) 0.2 Plt Count, EDTA (150 - 400 K/uL) 146 PUBS MCHC (31 - 37 g/dL) 32 09/14 2000 Coagulation APTT Cancelled Assessment and Plan Problem List 1. Acute respiratory failure with hypoxia Plan - Improved - Pt is now only requiring 1 liter of O2 by NC - I suspect pt may require supplemental O2 long-term and therefore she will need a home O2 evaluation on day of discharge 2. Acute exacerbation of CHF (congestive heart failure) Plan - Improved - Continue Lasix 120 mg PO BID - Continue to monitor Is and Os closely - Continue to check weight daily 3. Atrial fibrillation Status Chronic Plan - Paroxysmal - Continue home medications - Pts INR is 1.2 today - Continue Heparin drip and Warfarin, pharmacy managing Warfarin dosing - Recheck INR in AM 4. Hypertension Plan - Well controlled - Continue home medications 5. Hypokalemia Plan - Resolved status post replacement with IV KCl on 09/14/2016
[2016-09-15 14:51] VITALS: BP 119/40
[2016-09-15 18:54] VITALS: BP 144/44
[2016-09-15 22:30] VITALS: BP 150/42
[2016-09-16 02:12] VITALS: BP 124/63
[2016-09-16 07:15] VITALS: BP 155/53
[2016-09-16 13:16] VITALS: BP 164/59
[2016-09-16 14:36] VITALS: BP 153/44
--- NOTE | 2016-09-16 15:31 | Progress Note ---
Subjective General Pt states her shortness of breath is improved. She continues to do well on supplemental O2. No other complaints or concerns at this time. Physical Exam Vital Signs / I&Os Vital Signs Date Time Temp Pulse Resp B/P Pulse O2 O2 Flow FiO2 Ox Delivery Rate 09/16 1513 89 09/16 1437 1.0 09/16 1436 153/44 09/16 1316 98.1 75 25 164/59 95 Nasal 1.0 Cannula 09/16 0956 97.3 09/16 0933 91 09/16 0933 155/55 09/16 0900 1.0 09/16 0729 1.0 09/16 0715 97.3 81 27 155/53 95 Nasal 1.0 Cannula 09/16 0212 97.9 77 26 124/63 95 Nasal 1.0 Cannula 09/16 0125 2.0 09/15 2230 98.6 87 30 150/42 95 Nasal 1.0 Cannula 09/15 2153 96 09/15 2153 144/44 09/15 2112 Nasal 1.0 Cannula 09/15 1933 1.0 09/15 1854 98.1 85 28 144/44 90 I&O 09/16 0000 09/15 1600 09/15 0800 Intake Total 1049 600 424 Output Total 900 550 900 Balance 149 50 -476 Other GENERAL: NAD; Pt laying comfortably in bed HEENT: AT/NC; PERRLA, EOMI; MM Moist CARDIAC: RRR, No M/R/G appreciated PULM: Coarse breath sounds bilaterally NEURO: Alert and oriented x3; Following all commands PSYCH: Normal mood and affect LAB Results Laboratory Tests 09/16 09/16 09/16 09/15 0900 0500 0430 1999 Chemistry Plasma Sodium (136 - 145 mmol/L) Cancelled 139 Plasma Potassium (3.5 - 5.1 mmol/L) Cancelled 3.6 Plasma Chloride (98 - 107 mmol/L) Cancelled 101 CO2 (Enzymatic) (21 - 32 mmol/L) Cancelled 35 BUN (7 - 18 mg/dL) Cancelled 36 Creatinine (0.6 - 1.3 mg/dL) Cancelled 1.0 Est GFR ( Amer) (mL/min) Cancelled >60 Est GFR (Non-Af Amer) (mL/min) Cancelled 56.14 Glucose (70 - 110 mg/dL) Cancelled 167 Plasma Calcium (8.5 - 10.1 mg/dL) Cancelled 8.3 Coagulation INR (0.8 - 1.2) 1.3 APTT (24 - 34 SECONDS) 57 Cancelled Hematology WBC (4.5 - 11.5 K/uL) Cancelled 7.3 RBC (4.00 - 5.20 M/uL) Cancelled 3.32 Hgb (12.0 - 16.0 gm/dL) Cancelled 10.0 Hct (36.0 - 46.0 %) Cancelled 31.6 MCV (80 - 100 fL) Cancelled 95 MCH (26 - 34 pg) Cancelled 30 RDW (11.6 - 14.8 %) Cancelled 15.1 Neut % (Auto) (50 - 75 %) 59.9 Lymph % (Auto) (25 - 40 %) 20.4 [place] % (Auto) (3 - 14 %) 18.3 Eos % (Auto) (0 - 4 %) 1.1 Baso % (Auto) (0 - 2 %) 0.3 Plt Count, EDTA (150 - 400 K/uL) Cancelled 146 PUBS MCHC (31 - 37 g/dL) Cancelled 32 Assessment and Plan Problem List 1. Acute respiratory failure with hypoxia Plan - Continue supplemental O2 at 1 L/min and titrate to keep SpO2 greater than 92% - Pt will need a home O2 assessment prior to discharge - Continue PRN breathing treatments 2. CHF (congestive heart failure) Plan - Stable - Continue Lasix 120 mg PO BID - Continue home medications - Check daily weight - Low Na diet - Monitor Is and Os 3. Atrial fibrillation Status Chronic Plan - Paroxysmal - Continue home medications - INR today is 1.3 - Continue Heparin drip for now while pts INR is subtherapeutic - Continue daily Warfarin, per pharmacy dosing - Recheck PT/INR in AM 4. Hypertension Plan - Well controlled - Continue home medications 5. Diabetes mellitus Plan - Check FSBS q AC and HS - Continue low-dose SSI for now 6. Hyperlipidemia Plan - Continue home statin therapy
[2016-09-16 19:18] VITALS: BP 159/45
[2016-09-16 21:59] VITALS: BP 168/68
[2016-09-17 03:21] VITALS: BP 147/83
[2016-09-17 06:54] VITALS: BP 157/50
[2016-09-17 10:51] VITALS: BP 125/41
[2016-09-17 14:00] VITALS: BP 108/40
[2016-09-17 18:45] VITALS: BP 135/48
--- NOTE | 2016-09-17 21:43 | Progress Note ---
Subjective General Pt. admitted with CHF and prolonged PTwith Hx of underlying A fib. . She is gradually doing better. Feels her breathing is better. She also has problems with AODM abd is on insulin. Cureently on heparin infusion as protime INR reestablishes therapeutic level. Constitutional Weakness. Respiratory Cough, Dry, Wheezing, Other. Cardiovascular Denies: Chest Pain, Orthopnea. Gastrointestinal Abdominal Pain (mild L sided. ). Genitourinary Denies: Dysuria. Musculoskeletal Back Pain. Skin Denies: Rash. Neurological Weakness (weakness improving.). Physical Exam Vital Signs / I&Os Vital Signs Date Time Temp Pulse Resp B/P Pulse O2 O2 Flow FiO2 Ox Delivery Rate 09/17 1845 97.9 66 20 135/48 96 Nasal 1.0 Cannula 09/17 1816 Nasal 1.0 Cannula 09/17 1604 1.0 09/17 1545 89 09/17 1400 97.9 66 18 108/40 93 Nasal 1.0 Cannula 09/17 1329 108/40 09/17 1051 97.9 85 18 125/41 95 Nasal 1.0 Cannula 09/17 0921 70 09/17 0900 1.0 09/17 0800 Nasal 1.0 Cannula 09/17 0654 97.9 63 18 157/50 98 Nasal 1.0 Cannula 09/17 0333 1.0 09/17 0321 98.1 82 22 147/83 91 Nasal 1.0 Cannula 09/17 0030 Nasal 1.0 Cannula 09/16 2224 168/68 09/16 2206 80 09/16 2159 98.1 84 23 168/68 90 Nasal Cannula I&O 09/16 0800 09/16 1600 09/17 0000 Intake Total 140 600 720 Output Total 825 250 700 Balance -685 350 20 General Appearance Alert, Oriented X3, Cooperative, No acute distress Lungs bibasilar faint rales and a few faint wheezes. Cardiovascular irreg-irreg, 3/6 M aortic area and 2/6 M apex-axilla Abdomen Normal bowel sounds, Soft, No tenderness, No guarding Extremities trace akle edema +1 d. pedis pulse L and R Neurological Normal speech, Normal tone, Cranial nerves intact LAB Results Laboratory Tests 09/17 09/17 0445 1354 Chemistry Plasma Sodium (136 - 145 mmol/L) 145 Plasma Potassium (3.5 - 5.1 mmol/L) 3.3 Plasma Chloride (98 - 107 mmol/L) 105 CO2 (Enzymatic) (21 - 32 mmol/L) 37 BUN (7 - 18 mg/dL) 31 Creatinine (0.6 - 1.3 mg/dL) 0.9 Est GFR ( Amer) (mL/min) >60 Est GFR (Non-Af Amer) (mL/min) >60 Glucose (70 - 110 mg/dL) 116 Plasma Calcium (8.5 - 10.1 mg/dL) 8.5 Coagulation INR (0.8 - 1.2) 1.6 APTT (24 - 34 SECONDS) 66 Hematology WBC (4.5 - 11.5 K/uL) 8.1 RBC (4.00 - 5.20 M/uL) 3.19 Hgb (12.0 - 16.0 gm/dL) 9.8 Hct (36.0 - 46.0 %) 30.2 MCV (80 - 100 fL) 95 MCH (26 - 34 pg) 31 RDW (11.6 - 14.8 %) 14.9 Neut % (Auto) (50 - 75 %) 48.4 Lymph % (Auto) (25 - 40 %) 28.6 [place] % (Auto) (3 - 14 %) 19.3 Eos % (Auto) (0 - 4 %) 3.4 Baso % (Auto) (0 - 2 %) 0.3 Plt Count, EDTA (150 - 400 K/uL) 164 PUBS MCHC (31 - 37 g/dL) 32 Assessment and Plan Problem List 1. Acute exacerbation of CHF (congestive heart failure) Plan improving. Continue current multiple meds. 2. Diabetes mellitus Plan Continue current Lantus dose and SS insulin. 3. Atrial fibrillation Status Chronic Plan PtINR 1.6. Continue warfarin at 4 mg/d and continue heparin infusion until Ptinr is therapeutic. 4. Hypokalemia Plan K+ 3.3. Will increase K+ dose. Recheck in am. 5. Asymptomatic bacteriuria Plan Urine culture G+ cocci 10-50,000. Wait for sensitivity before starting antibiotic. May be chronic contaminant. E&M Codes Rounding: Inpt-Moderate/[id number]
[2016-09-18] VITALS (7 sets, daily range): BP systolic 116–178; BP diastolic 49–80
--- NOTE | 2016-09-18 12:57 | Progress Note ---
Subjective General 85 y/o female WITH HX Diabetes Mellitus, Hypertension, H/O CAD with stent palcement, atrial fibrillation on coumadin, hypothyroidism, cardiomyopathy BIBA to [facility] ED presented with SOB. Admitted for acute exacerabtion of CHF, with uncontrolled hypertension and supratherapeutic INR of 13. She recieved 1 dose of lasix in ED. On floor she recieved IV vit k and hydralazine, and 1 unit of FFP. Now feels about 50% better. Tolerating po intake and up in chair but still coughing heavily and sob. Physical Exam Vital Signs / I&Os Vital Signs Date Time Temp Pulse Resp B/P Pulse O2 O2 Flow FiO2 Ox Delivery Rate 09/18 1024 1.0 09/18 0949 97.9 64 16 116/49 93 Nasal 1.0 Cannula 09/18 0835 1.0 09/18 0629 97.9 61 16 167/61 98 Nasal 1.0 Cannula 09/18 0336 97.3 68 20 178/63 95 Nasal 1.0 Cannula 09/18 0115 1.0 09/18 0054 153/53 09/18 0053 64 09/18 0001 97.9 64 20 152/53 94 Nasal 1.0 Cannula 09/18 0000 Nasal 1.0 Cannula 09/17 2201 1.0 09/17 1845 97.9 66 20 135/48 96 Nasal 1.0 Cannula 09/17 1816 Nasal 1.0 Cannula 09/17 1604 1.0 09/17 1545 89 09/17 1400 97.9 66 18 108/40 93 Nasal 1.0 Cannula 09/17 1329 108/40 I&O 09/17 0800 09/17 1600 09/18 0000 Intake Total 328 882 Output Total 440 300 343 Balance -112 -300 539 General Appearance Alert, Oriented X3, Cooperative, No acute distress Lungs Scattered rhonchi. Cardiovascular Regular rate and rhythm Abdomen Normal bowel sounds, Soft, No tenderness Extremities No edema LAB Results Laboratory Tests 09/17 09/18 09/18 1354 0500 0530 Chemistry Plasma Sodium (136 - 145 mmol/L) 143 Plasma Potassium (3.5 - 5.1 mmol/L) 3.5 Plasma Chloride (98 - 107 mmol/L) 104 CO2 (Enzymatic) (21 - 32 mmol/L) 36 BUN (7 - 18 mg/dL) 32 Creatinine (0.6 - 1.3 mg/dL) 1.0 Est GFR ( Amer) (mL/min) >60 Est GFR (Non-Af Amer) (mL/min) 56.14 Glucose (70 - 110 mg/dL) 129 Plasma Calcium (8.5 - 10.1 mg/dL) 8.4 Coagulation INR (0.8 - 1.2) 1.8 APTT (24 - 34 SECONDS) 66 Cancelled 70 Hematology WBC (4.5 - 11.5 K/uL) 9.8 RBC (4.00 - 5.20 M/uL) 3.20 Hgb (12.0 - 16.0 gm/dL) 9.7 Hct (36.0 - 46.0 %) 30.6 MCV (80 - 100 fL) 96 MCH (26 - 34 pg) 30 RDW (11.6 - 14.8 %) 14.6 Neut % (Auto) (50 - 75 %) 56.1 Lymph % (Auto) (25 - 40 %) 25.0 [place] % (Auto) (3 - 14 %) 15.1 Eos % (Auto) (0 - 4 %) 3.4 Baso % (Auto) (0 - 2 %) 0.4 Plt Count, EDTA (150 - 400 K/uL) 173 PUBS MCHC (31 - 37 g/dL) 32 Assessment and Plan Problem List 1. Acute exacerbation of CHF (congestive heart failure) Plan Improving clinically. Will recheck labs. 2. Diabetes mellitus Plan BG stable on current plan. 3. Hypertension Plan stable. 4. Atrial fibrillation Status Chronic Plan stable.
[2016-09-19] VITALS (10 sets, daily range): BP systolic 126–187; BP diastolic 49–73
--- NOTE | 2016-09-19 14:16 | Progress Note ---
Subjective General cough since yesterday. She states that she is stable. now with nausea in evening after eating. No diarrhea/constipation. Physical Exam Vital Signs / I&Os Vital Signs Date Time Temp Pulse Resp B/P Pulse O2 O2 Flow FiO2 Ox Delivery Rate 09/19 1345 1.0 09/19 1237 36.6 09/19 1136 36.5 63 20 136/49 95 Nasal 2.0 Cannula 09/19 0952 78 09/19 0950 99 Nasal 2.0 Cannula 09/19 0949 Room Air 09/19 0818 72 09/19 0818 153/73 09/19 0749 1.0 09/19 0626 36.7 72 19 153/73 96 Nasal 2.0 Cannula 09/19 0333 135/50 09/19 0248 180/68 09/19 0214 36.7 79 16 180/68 95 Nasal 2.0 Cannula 09/18 2330 1.0 09/18 2139 72 09/18 2139 147/57 09/18 2127 36.9 72 16 151/80 95 Nasal 1.0 Cannula 09/18 1999 Nasal 1.0 Cannula 09/18 1922 1.0 09/18 1813 36.7 68 16 147/57 95 Nasal 1.0 Cannula 09/18 1707 96 09/18 1500 1.0 09/18 1419 36.7 61 16 156/54 93 Nasal 1.0 Cannula I&O 09/19 0000 09/18 1600 09/18 0800 Intake Total 761 930 240 Output Total 1200 600 575 Balance -439 330 -335 General Appearance Alert, Cooperative, No acute distress Lungs Intermittent crackles in LLL Cardiovascular Regular rate and rhythm, Normal S1 and S2, 3/6 systolic murmur increased at base. Abdomen Normal bowel sounds, Soft, No tenderness Extremities No edema Assessment and Plan Problem List 1. Acute exacerbation of CHF (congestive heart failure) Plan improving. Continue diuresis. 2. Atrial fibrillation Status Chronic Plan Rate controlled. On anticoagulant. 3. Diabetes mellitus Plan Hyperglycemic. changed to consistent carb diet today. 4. UTI (urinary tract infection) Plan Started macrobid today. 5. Cough Plan CHF vs. pneumonia. Will get xhest x-ray 6. Nausea Plan If continues despite treatment of UTI and/or pneumonia, would get Upper GI.
--- NOTE | 2016-09-19 14:42 | DIAGNOSTIC IMAGING REPORT ---
PROCEDURE: XR CHEST 2 VIEW INDICATION: new onset cough TECHNIQUE: PA and lateral views. COMPARISON: Compared to chest x-ray on 09/15/2016. FINDINGS: Allowing for suboptimal inspiration and overlying wires and electrodes, lungs are clear. Probable small right pleural effusion. Borderline/mild cardiomegaly. Mediastinum is normal. Mild degenerate change of the thoracic spine. IMPRESSION: 1. Borderline/mild cardiomegaly with probable small right pleural effusion. While there is no evidence of interstitial edema, consider chronic or treated congestive heart failure.
[2016-09-20] VITALS (8 sets, daily range): BP systolic 113–183; BP diastolic 49–73
--- NOTE | 2016-09-20 07:47 | Progress Note ---
Subjective General 85 y/o female WITH HX Diabetes Mellitus, Hypertension, H/O CAD with stent palcement, atrial fibrillation on coumadin, hypothyroidism, cardiomyopathy BIBA to [facility] ED presented with SOB. Admitted for acute exacerabtion of CHF, with uncontrolled hypertension and supratherapeutic INR of 13. She recieved 1 dose of lasix in ED. On floor she recieved IV vit k and hydralazine, and 1 unit of FFP. Staqrted on consistent carb diet and antibiotic for UTI 09/19. Repeat CXR 09/19 shows mild vascular congestion. Feeling improved. Able to ambulate with walker in [place]. Tolerating PO. Denies nausea or vomiting but still gets a bit sob. On O2 here and does not use it at home. Lives in her own home with and dtr and dogs. Physical Exam Vital Signs / I&Os Vital Signs Date Time Temp Pulse Resp B/P Pulse O2 O2 Flow FiO2 Ox Delivery Rate 09/20 0750 98.1 68 23 146/49 100 Nasal 1.5 Cannula 09/20 0315 Nasal 1.5 Cannula 09/20 0218 98.2 70 24 150/61 100 Nasal 1.5 Cannula 09/19 2306 97.5 79 24 145/58 99 Nasal 1.5 Cannula 09/19 2040 76 / 2040 148/65 09/19 2013 97.5 79 24 148/62 95 Nasal 1.5 Cannula / 1946 76 24 152/53 97 Nasal 1.0 Cannula / 1923 1.0 / 1909 180/68 / 1900 78 18 187/55 97 Nasal 1.0 Cannula 09/19 1830 98.2 80 18 180/66 95 Nasal 1.0 Cannula / 1611 81 92 Room Air / 1417 98.4 90 18 126/53 90 Room Air 0.0 / 1413 76 01/02 1345 1.0 / 1237 97.9 / 1136 97.7 63 20 136/49 95 Nasal 2.0 Cannula / 0952 78 /02 0950 99 Nasal 2.0 Cannula 09/19 0949 Room Air 09/19 0818 72 /02 0818 153/73 I&O / 0800 /02 1600 09/20 0000 Intake Total 405 512 240 Output Total 350 350 720 Balance 55 162 -480 General Appearance Alert, Oriented X3, Cooperative, No acute distress Lungs Clear to auscultation Cardiovascular Regular rate and rhythm Abdomen Normal bowel sounds, Soft, No tenderness Extremities No edema Skin No Rashes LAB Results Laboratory Tests 09/20 0555 Chemistry Plasma Sodium (136 - 145 mmol/L) 143 Plasma Potassium (3.5 - 5.1 mmol/L) 4.5 Plasma Chloride (98 - 107 mmol/L) 102 CO2 (Enzymatic) (21 - 32 mmol/L) 37 BUN (7 - 18 mg/dL) 24 Creatinine (0.6 - 1.3 mg/dL) 1.0 Est GFR ( Amer) (mL/min) >60 Est GFR (Non-Af Amer) (mL/min) 56.14 Glucose (70 - 110 mg/dL) 163 Plasma Calcium (8.5 - 10.1 mg/dL) 8.9 Coagulation INR (0.8 - 1.2) 2.6 Hematology WBC (4.5 - 11.5 K/uL) 12.3 RBC (4.00 - 5.20 M/uL) 3.24 Hgb (12.0 - 16.0 gm/dL) 9.9 Hct (36.0 - 46.0 %) 30.7 MCV (80 - 100 fL) 95 MCH (26 - 34 pg) 30 RDW (11.6 - 14.8 %) 15.4 Neut % (Auto) (50 - 75 %) 69.6 Lymph % (Auto) (25 - 40 %) 14.5 [place] % (Auto) (3 - 14 %) 13.9 Eos % (Auto) (0 - 4 %) 1.8 Baso % (Auto) (0 - 2 %) 0.2 Plt Count, EDTA (150 - 400 K/uL) 204 PUBS MCHC (31 - 37 g/dL) 32 Assessment and Plan Problem List 1. Acute exacerbation of CHF (congestive heart failure) Plan Improved. Will wean off O2 for discharge., 2. Diabetes mellitus Plan Stable. 3. Hypertension Plan stable. 4. Atrial fibrillation Status Chronic Plan stable.
[2016-09-21 03:03] VITALS: BP 153/61
[2016-09-21 06:41] VITALS: BP 165/60
[2016-09-21] MEDS ORDERED: LANTUS SOL100 UNITS/ SC (07:53)
--- NOTE | 2016-09-21 07:59 | Provider's Discharge Care Plan ---
Problem, Goal, Plan Problem List 1. Acute exacerbation of CHF (congestive heart failure) Goals: Improve disease control Instructions: Take meds as directed 2. Diabetes mellitus Goals: Improve disease control Instructions: Take meds as directed, Diabetic diet 3. Atrial fibrillation Goals: Improve disease control Instructions: Take meds as directed 4. Hypertension Goals: Improve disease control Instructions: Take meds as directed 5. Hyperlipidemia Goals: Improve disease control Instructions: Take meds as directed 6. CKD (chronic kidney disease) stage 2, GFR 60-89 ml/min Goals: Improved health/wellness Instructions: Take meds as directed 7. Supratherapeutic INR Goals: Resolved Instructions: Take meds as directed
--- NOTE | 2016-09-21 08:57 | DISCHARGE SUMMARY ---
ADMIT DATE: 09/12/2016 DISCHARGE DATE: 09/21/2016 ADMITTING DIAGNOSES: 1. Acute respiratory failure with hypoxia 2. Acute exacerbation of congestive heart failure secondary to viral upper respiratory infection 3. Supratherapeutic INR 4. Atrial fibrillation with chronic anticoagulation 5. Hypertension 6. Diabetes mellitus, controlled 7. Hyperlipidemia 8. Chronic kidney disease, stable, stage 2 DISCHARGE DIAGNOSES: 1. Acute respiratory failure with hypoxia 2. Acute exacerbation of congestive heart failure secondary to viral syndrome 3. Supratherapeutic INR, resolved 4. Atrial fibrillation with chronic anticoagulation 5. Hypertension, controlled 6. Diabetes mellitus type 2, controlled 7. Hyperlipidemia, controlled 8. Urinary tract infection 9. Chronic kidney disease, stage 2, stable BRIEF HISTORY: The patient presented with increasing dyspnea and dry cough. In the emergency department, acute exacerbation of CHF was diagnosed. No evidence of active, treatable infection was identified. The patient was admitted for care of acute exacerbation of congestive heart failure and respiratory failure. HOSPITAL COURSE: The patient was admitted and treated with oxygen supplementation and then BiPAP to manage oxygen needs. Additionally, she was given IV diuresis. As she gradually improved, she was transitioned to oral medications and had slow, steady improvement, but she continued to have some need for oxygen supplementation up until the day of discharge. Urinary tract infection was identified during the hospital stay, and she was placed on Macrobid. Her Coumadin was withheld initially on admission until the INR came into a normal therapeutic range, and then she was restarted on her usual Coumadin dosage of 4 mg at bedtime. She was treated with nebulized bronchodilators during the hospital stay, with good results. She was maintained on her antihypertensive regimen. She was given sliding scale insulin for control of diabetes. Cholesterol was controlled with atorvastatin. She was maintained on her usual Levothyroxine. Digoxin level was checked during the hospital stay and was therapeutic. DISCHARGE INSTRUCTIONS/MEDICATIONS: Discharge medications: Glargine insulin 25 units subcutaneous at bedtime. Carvedilol 6.25 mg p.o. b.i.d. Furosemide 120 mg p.o. b.i.d. Hydralazine 25 mg p.o. b.i.d. Isosorbide 30 mg p.o. daily. Levothyroxine 88 mcg p.o. daily. Pravastatin 40 mg p.o. at bedtime. Warfarin 4.5 mg p.o. daily. Digoxin 62.5 mg p.o. daily. Special instructions: [facility] continuum ordered, to monitor respiratory status and control of congestive heart failure following discharge. Low-salt diet recommended. Follow up in my office in 2 weeks. Light activity at home.
[2016-09-21 12:24] VITALS: BP 152/48
[2016-09-21 14:20] VITALS: BP 128/38
== END 2016-09-21 14:30 | DRG 291 ==
LOC: ED SRH 23:29 → TRANS SRH 09-12 04:04 → CC SRH 09-12 04:52 → ACUTE2 SRH 09-12 09:05 → CC SRH 09-13 12:29 → ACUTE2 SRH 09-16 18:32
PROVIDERS: ADMIT Family Medicine
PROC: 30233K1 Transfusion of Nonautologous Frozen Plasma into Peripheral Vein, Percutaneous Approach (ICD-10-PCS; principal; 2016-09-12)
DX: I13.0 Hypertensive heart and chronic kidney disease with heart failure and stage 1 through stage 4 chronic kidney disease, or unspecified chronic kidney disease (principal); I50.23 Acute on chronic systolic (congestive) heart failure; J96.01 Acute respiratory failure with hypoxia; N39.0 Urinary tract infection, site not specified; E11.22 Type 2 diabetes mellitus with diabetic chronic kidney disease; N18.3 Chronic kidney disease, stage 3 (moderate); J06.9 Acute upper respiratory infection, unspecified; R79.1 Abnormal coagulation profile; T45.515A Adverse effect of anticoagulants, initial encounter; I48.2 Chronic atrial fibrillation; I42.9 Cardiomyopathy, unspecified; Z79.4 Long term (current) use of insulin
CPT/HCPCS: 29230; 81240; 85241; 90001; 90004; 90047; 90070; 90074; 90098; 90100; 90155; 90469; 90616; 91286; 91320; 91400; 91585; 92132; 92610; 92690; 92720; 93004; 93020; 93140; 94001; 94060; 95059

== ENCOUNTER 2016-10-26 16:18 | Outpatient (CLI) | payer OTHER ==
[~2016-10-26 16:18] MED LIST: CARVEDILOL12.5 MG PO; CARVEDILOL6.25 MG PO; COUMADIN2.5 MG PO; DIGOXIN0.125 MG PO; FUROSEMIDE40 MG PO; HYDRALAZINE HCL25 MG PO; ISOSORBIDE MONO30 MG PO; LANTUS SOL100 UNITS/ SC; LEVO-T88 MCG PO; PRAVASTATIN SOD40 MG PO
--- NOTE | 2016-10-26 17:23 | DIAGNOSTIC IMAGING REPORT ---
PROCEDURE: XR CHEST 2 VIEW INDICATION: CONGESTIVE HEART FAILURE, initial encounter TECHNIQUE: PA and lateral view. COMPARISON: Chest x-ray 09/19/2016 FINDINGS: Mild cardiomegaly with pulmonary vascular congestion and new mild bilateral pleural effusions. There are mild to moderate bibasilar infiltrates. No suspicious osseous lesions. IMPRESSION: 1. Mild cardiomegaly with vascular congestion mild bilateral pleural effusions consistent with CHF 2. Bibasilar infiltrates/atelectasis 3. Results discussed with Dr. Valdez
== END 2016-10-26 23:00 ==
LOC: LAB SRH 16:18
DX: Z76.89 Persons encountering health services in other specified circumstances (principal); E11.9 Type 2 diabetes mellitus without complications; I48.2 Chronic atrial fibrillation; I50.9 Heart failure, unspecified
CPT/HCPCS: 90074; 90100; 91320; 93140; 94060; 95059

== ENCOUNTER 2016-10-29 10:16 | Inpatient (IN) | payer OTHER ==
[~2016-10-29] VITALS: Ht 154.9 cm; Wt 70.2 kg
--- NOTE | 2016-10-29 12:12 | DIAGNOSTIC IMAGING REPORT ---
PROCEDURE: XR CHEST 1 VIEW INDICATION: Shortness of breath, initial encounter TECHNIQUE: Portable AP view 10:55 a.m. COMPARISON: Chest x-ray 10/26/2016 FINDINGS: Mild cardiomegaly with progression of moderate right and mild left pleural effusions. There is pulmonary vascular congestion. Thorax is normal. IMPRESSION: 1. CHF with progression of right pleural effusion. Cannot exclude underlying infiltrates. Correlate clinically 2. Results discussed with Dr. Sevilla
--- NOTE | 2016-10-29 12:24 | ED NURSING NOTES ---
Clinical Report - Nurses [facility] [address] [place] [address] 10/29/2016 10:16 Patient: MERLIN FORD TRIAGE Triage time 10:29. Acuity: LEVEL 3. Chief Complaint: COUGH and WHEEZING. Alert. No acute distress. SEPSIS SCREEN: Sepsis Screen. Infection suspected/documented. Respiratory rate greater than 20. Physician notified. ZAIDA COMA SCORE: [place] Coma Scale: 15- eyes open spontaneously (4); best verbal response- oriented x 4 (5); best motor response- obeys commands (6). --10:36 Patience Corral R.N. 10:29 10/29/16. BP: 139/60. HR: 89. RR: 26. O2 saturation: 94%. Temp: 97.6 F. Pain level now: 0/10. Additional comments: rr: pt on home o2. . --10:36 Patience Corral R.N. Weight: 64.8 kg stated. Height/Length: 61 inches Per Patient. BMI: 27. --10:34 Patience Corral R.N. Medications Carvedilol Oral (Tablet 6.25 mg) 1 tablet, twice daily. --10:37 Patience Corral R.N. Levothyroxine Sodium Oral 88 mcg, daily. --10:37 Patience Corral R.N. HydrALAZINE HCl Oral (Tablet 25 mg) 1 tablet, twice daily. --10:38 Patience Corral R.N. Ipratropium-Albuterol Inhalation. --10:38 Patience Corral R.N. Lantus Subcutaneous 23 units, every PM. --10:39 Patience Corral R.N. Coumadin Oral 3 mg, daily. --10:39 Patience Corral R.N. Digoxin Oral 0.125 mg, 1/2 tab daily. --10:40 Patience Corral R.N. Isosorbide Mononitrate ER Oral 60mg daily. --10:41 Patience Corral R.N. Furosemide Oral 80 mg, 2x a day. --10:41 Patience Corral R.N. Cozaar Oral 100 mg, daily. --10:41 Patience Corral R.N. Pravachol Oral (Tablet 40 mg) 1 tablet, daily. --10:41 Patience Corral R.N. HumaLOG Subcutaneous. --10:42 Patience Corral R.N. Allergies No Known Drug Allergy. --10:38 Patience Corral R.N. History Arrived by private vehicle. Historian: patient. Accompanied by family. Primary physician (Dr. Valdez). Onset. (had a cough since , she went to the "rehab facility and she has only been home for about a week." She continues to get worse.). ( Sent over by Dr Valdez. She was seen at his office a couple days ago. Started on antibiotics; called to follow up on her and she was advised to go to the ED for chest xray and further testing.). Treatment CHARGE OUT CLERK: None. PAST MEDICAL HX: Immunizations: up-to-date. SOCIAL HX: Never smoker. No alcohol use or drug use. No infectious disease exposure. ABUSE ASSESSMENT: No report of abuse. SELF HARM ASSESSMENT: A self harm assessment was performed. The patient answered "no" to the question "Do you have thoughts of harming or killing yourself?" and "Have you recently had thoughts about harming or killing others?". NUTRITIONAL RISK ASSESSMENT: The nutritional risk assessment revealed no deficiencies. FUNCTIONAL ASSESSMENT: Functional assessment: no impairments noted. LEARNING NEEDS ASSESSMENT: The learning needs assessment revealed no barriers. --10:36 Patience Corrla R.N. ( Correction to prior charting: Family states pt. is getting better from the pnuemonia but José Miguel is concerned she is becoming to anemic.). --10:43 Patience Corral R.N. PROBLEMS: Coumadin Toxicity. Hypoxia. Muscle Spasm. Leukocytosis. Hypothyroidism. Arrhythmia. Congestive Heart Failure. Near Syncope. Pneumonia. Diabetes Mellitus. Atrial Fibrillation. Hypertension. --10:42 Patience Corral R.N. ADDITIONAL SURGERIES: Tonsillectomy. --10:42 Patience Corral R.N. Interventions ID band on patient. Transported via wheelchair. --10:36 Patience Corral R.N. PHYSICAL ASSESSMENT 10:30. Ambulatory to room. GENERAL / NEURO / PSYCH: Alert. Oriented X 4. Appears in no acute distress. HEENT: Mucous membranes are pink. RESPIRATORY: Mild respiratory distress. Cough productive of scant amounts of thick, green, brown sputum. CVS: Capillary refill less than 2 seconds. SKIN: Skin is warm and dry. --10:44 Patience Corral R.N. EXTREMITIES: Bilateral 3+ edema of the lower extremities involving both feet, both ankles and both lower legs. --12:58 Patience Corral R.N. NURSING PROGRESS NOTES 10:29. Oxygen administered by nasal cannula at 2 liters. monitor technician, pulse oximeter and NIBP monitor placed on patient; surveillance monitor- Lead II; monitor alarms on. Patient gowned. Head of bed elevated. Two patient identifiers checked. Call light placed in reach. Side rails up x 2. Bed placed in lowest position. Brakes of bed on. Patient ready for evaluation- chart flagged. --10:45 Patience Corral R.N. 10:31 10/29/2016 Site #1 started via IV in the left antecubital space with an 20g angiocath, with aseptic technique and good blood return; one attempt. Blood drawn: rainbow set and cultures x1. Labeled in the presence of the patient and sent to the lab. Saline lock flushed with 10 mL saline (accessed by JONAH Walker. Lactate drawn.). --10:45 Patience Corral R.N. EKG time: (1048). EKG was ordered, performed by a tech and shown to the ED physician. --10:46 Patience Corral R.N. ( Rt at the bedside for eval/treatment.). --10:46 Patience Corral R.N. 10:48 10/29/2016 Duoneb (Ipratropium-Albuterol) Neb TX 1 unit dose given. Given by the respiratory therapist. Allergies verified and confirmed 5 rights. --10:48 Patience Corral R.N. 11:48 10/29/16. BP: 130/48 taken on the left arm, via an automated monitor, while sitting. ED physician notified. HR: 81 (regular, normal rate and strong). RR: 22 (regular, unlabored and normal). O2 saturation: 97% on nasal cannula at 1 liters/minute. O2 started via nasal cannula. RN notified. --11:49 Jorge Shaver 12:52 10/29/16. BP: 145/62. HR: 79 (irregular and normal rate). RR: 27. O2 saturation: 97%. Pain level now: 0/10. --12:53 Patience Corral R.N. 13:16 10/29/2016 Started 80 mg of Furosemide IVPB in bag #1 50 mL; at 90 mL/hr over 30 minute(s) via site #1 via IV pump. Allergies verified and confirmed 5 rights. IV patency established. IV site checked: no pain, redness, or swelling. IV flushed thoroughly pre- and post-medication administration. --13:16 Patience Corral R.N. ( attempt to call report. RN to call back.). --13:42 Patience Corral R.N. 13:46 10/29/2016 Furosemide IVPB Discontinued: infused. Total amount infused: 50 mL. IV patency established. IV site checked: no pain, redness, or swelling. IV flushed thoroughly. --18:02 Patience Corral R.N. DISPOSITION / DISCHARGE Report was given to a nurse via a phone call. Report included patient's care, treatment, medications, reviewed medication reconcilliation, and condition (including any recent changes or anticipated changes). All questions were answered. --13:47 Patience Corral R.N. Admitted to Acute Care. Transported via stretcher by [employer] with O2. Patient's personal items; items were placed in belongings bag, given to the patient and transported with the patient. --13:47 Patience Corral R.N. 17:59 10/29/16. BP: 133/58. HR: 83. RR: 22. O2 saturation: 97%. Temp: 98.3 F. Pain level now 0/10. --18:03 Patience Corral R.N. 13:55 10/29/2016 Site #[address] upon admission; patent and no signs of infiltration. Good blood return present. Converted to saline lock and flushed with 10 mL saline; flushes easily. --18:04 Patience Corral R.N. Departure time: 1355. ( all discharge done at 1355.). --18:04 Patience Corral R.N. Locked/Released at 10/29/2016 18:05 by Patience Corral R.N.
--- NOTE | 2016-10-29 12:24 | ED CLINICAL REPORT ---
Clinical Report - Physicians/Mid Levels [facility] [address] [place] [address] 10/29/2016 10:16 Patient: MERLIN FORD Time Seen: 10:19. Arrived- By private vehicle. Historian- family. HISTORY OF PRESENT ILLNESS Chief Complaint: COUGH. Anemia. This started several days ago; Home from rehab x 7 days. Doing well with a walker. On one liter home 02 Pt had a routine follow up visit [address] Valdez thought she had pneumonia and a day later discovered an H&H of 7.5 He recommened that she be reexamined in the ED which she declined to do until today. and is still present. It was gradual in onset. The illness is described as moderate. The patient has had scant amounts of sputum, a cough, difficulty breathing, chills and muscle aches. No fever, sore throat, hoarseness or nasal congestion or discharge. No sinus pressure, sinus drainage or ear pain. Additional history - The patient has had contact with a sick individual. (just home from SNF). Similar symptoms previously: Recent medical care: The patient was seen recently in the office. ( Home from hospital and Rehab for one week after having been admitted to [facility] in mid September for CHF and supra theraputic INR PROCEDURE: XR CHEST 2 VIEW INDICATION: CONGESTIVE HEART FAILURE, initial encounter TECHNIQUE: PA and lateral view. COMPARISON: Chest x-ray 09/19/2016 FINDINGS: Mild cardiomegaly with pulmonary vascular congestion and new mild bilateral pleural effusions. There are mild to moderate bibasilar infiltrates. No suspicious osseous lesions. IMPRESSION: 1. Mild cardiomegaly with vascular congestion mild bilateral pleural effusions consistent with CHF 2. Bibasilar infiltrates/atelectasis 3. Results discussed with Dr. Valdez Electronically Final signed by:Adam Loving MD 10/26/2016 5:22:48 PM). REVIEW OF SYSTEMS No nausea, vomiting, diarrhea or abdominal pain or pain. No fever, difficulty breathing, black stools, bloody stools or constipation. No diarrhea, nausea, vomiting or difficulty with urination. The patient has had chills, fatigue and diabetic symptoms (low blood sugars in am -). She has had a moderate nonproductive cough (to severe). She has had moderate pedal edema. It has been similar to previous symptoms. No black or blood stools. All systems otherwise negative, except as recorded above. PAST HISTORY PCP: Dr Valdez CHF, Anticoagulation, DM2, Atrial fibrillation, Aortic stenosis, CRF stage 2. SOCIAL HISTORY Never smoker. She lives with a family member. ADDITIONAL NOTES The nursing notes have been reviewed. PHYSICAL EXAM Vital Signs: 10/29/2016 10:29 BP: 139/60. HR: 89. RR: 26. O2 saturation: 94%. Temp: 97.6 F. Pain level now: 0/10. Appearance: Alert. No acute distress. ENT: Pharynx normal. Neck: JVD present. CVS: 5/6 mid systolic murmur located at the base and left sternal border. Respiratory: No respiratory distress. Mildly decreased breath sounds diffusely over both lungs. Mild rales in the right lung base posteriorly. No accessory muscle use, rhonchi or wheezes. (Wet sounding cough). Extremities: Bilateral 3+ edema of the lower extremities involving both feet, both ankles and both lower legs. Extremities exhibit normal ROM. Neuro: No alteration in mental status. LABS, X-RAYS, AND EKG EKG: No acute process. No acute ischemia. Rate: 83. Atrial fibrillation. Normal QRS complex. Normal axis. Non-specific ST segment / T wave abnormalities. Chest X-ray: Congestive heart failure present. Laboratory Tests: CBC w Diff: (KARIN: 10/29/2016 10:41) ( MsgRcvd 10/29/2016 11:00) Final results Test Result Flag Units (Reference) WHITE BLOOD COUNT 9.8 K/uL (4.5-11.5) RED BLOOD COUNT 2.72 L M/uL (4.00-5.20) HEMOGLOBIN 8.0 L gm/dL (12.0-16.0) HEMATOCRIT 25.9 L % (36.0-46.0) MEAN CELL VOLUME 95 fL (80-100) MEAN CORPUSCULAR HGB 30 pg (26-34) MEAN CORPUSCULAR HGB CONC 31 g/dL (31-37) RED CELL DISTRIBUTION WIDTH 20.0 H % (11.6-14.8) PLATELET COUNT 267 K/uL (150-400) NEUTROPHIL % 75.9 H % (50-75) LYMPH % 12.2 L % (25-40) MONO % 11.0 % (3-14) EOSINOPHIL % 0.7 % (0-4) BASOPHIL % 0.2 % (0-2) PT with INR: (KARIN: 10/29/2016 10:41) ( [facility] 10/29/2016 11:00) Final results Test Result Flag Units (Reference) INR 2.0 H (0.8-1.2) Low Intensity Therapy: INR 1.5-2.0 PT range 18.5-23.1Mod.Intensity Therapy: INR 2.0-3.0 PT range 23.1-31.5High Intensity Therapy: INR 2.5-3.5 PT range 27.4-35.5High Intensity Therapy 2: INR 3.0-4.0 PT range 31.5-39.3 BNP: (KARIN: 10/29/2016 10:41) ( [facility] 10/29/2016 11:21) Final results Test Result Flag Units (Reference) B-TYPE NATRIURETIC PEPTIDE 823 H pg/ml (5-100) Lactate, Serum: (KARIN: 10/29/2016 10:41) ( [facility] 10/29/2016 11:22) Final results Test Result Flag Units (Reference) LACTIC ACID 1.2 mmol/L (0.4-2.0) [id number]: (KARIN: 10/29/2016 10:41) ( [facility] 10/29/2016 11:32) Final results Test Result Flag Units (Reference) PROCALCITONIN <0.5 ng/mL (0-0.5) PCT Concentration: Interpretation : Risk/option for action PCT <=0.5 ng/mL : Systemic : Low risk forinfection(sepsis): progression to severeis not likely. : systemic infection.Local bacterial : CAUTION-PCT levelsinfection is : below 0.5 ng/mL do notpossible. : exclude an infection,because localizedinfections (withoutsystemic signs) may beassociated with suchlow levels. If PCT ismeasured very earlyafter a bacterialchallenge (usually <6hours), these valuesmay still be low. Inthis case PCT shouldbe re-assessed 6-24hours later. PCT >0.5 and : Systemic infection: Moderate risk for<= 2 ng/mL : (sepsis) is : progression to severepossible, but : systemic infection.other conditions : The patient should beare known to : closely monitoredelevate PCT. : both clinically andby re-assessing PCTwithin 6-24 hours. PCT > 2 ng/mL : Systemic infection: High risk for(sepsis) is likely: progression to severeunless other : systemic infection.causes are known. : PCT >= 10 ng/mL : Important systemic: High likelihood ofinflammatory : severe sepsis orresponse, almost : septic shock.exclusively due to:severe bacterial :sepsis or septic :shock. : CHEM 13 PANEL: (KARIN: 10/29/2016 10:41) ( MsgRcvd 10/29/2016 11:08) Final results Test Result Flag Units (Reference) GLUCOSE 167 H mg/dL (70-110) BUN 32 H mg/dL (7-18) CREATININE 1.2 mg/dL (0.6-1.3) Estimated GFR 45.38 mL/min Estimated GFR- 55.00 mL/min Note: Persistent reduction over 3 months in eGFR<60 mL/min/1.73 m2 defines CKD. Patients with eGFR values>=60 mL/min/1.73 m2 may also have CKD if evidence ofpersistent proteinuria. Additional information may be foundat www.kidney.org. SODIUM 144 mmol/L (136-145) POTASSIUM 3.9 mmol/L (3.5-5.1) CHLORIDE 102 mmol/L (98-107) CARBON DIOXIDE 37 H mmol/L (21-32) CALCIUM 8.9 mg/dL (8.5-10.1) TOTAL PROTEIN 7.4 g/dL (6.4-8.2) ALBUMIN 2.8 L g/dL (3.3-5.0) BILIRUBIN, TOTAL 0.8 mg/dL (0.0-1.0) ALKALINE PHOSPHATASE 105 U/L (46-116) AST (SGOT) 22 U/L (15-37) ALT (SGPT) 40 U/L (12-78) CPK 31 U/L (24-260) MAGNESIUM 2.1 mg/dL (1.8-2.4) TROPONIN I 0.05 ng/mL (0.00-1.5) TROPONIN REFERENCE RANGE:<0.1 NEGATIVE0.1-1.5 INDETERMINANT>1.5 POSITIVE . PROGRESS AND PROCEDURES Course of Care: 12:15 10/29/16. Discussed with Dr Valdez. Pt certainly has worsening CHF despite Lasix 80 mg BID. She also has an HB of 8.0 which is borderline for transfusion but given CHV and it would likely be helpful. 12:22 10/29/16. Discussed with Dr Khan who agrees to admit the patient Dr Khan is here. I have finished transition orders except for code status. He knows. Disposition orders written. Disposition: Admitted. CLINICAL IMPRESSION Clinical picture does not suggest pneumonia. CHF - WORSENING ANEMIA HB 8.0. (Electronically signed by Suleman Sevilla MD 10/29/2016 22:50)
--- NOTE | 2016-10-29 12:24 | ED ORDER SUMMARY ---
..... Patient: MERLIN FORD OrderSheet [facility] VisitID: [id number] [address] [place] [address] 86y, F Registration Date/Time: 10/29/2016 ORDER SHEET Weight: 64.8 kg (stated) Allergies: No Known Drug Allergy GENERAL ORDERS: Chest 1V Urgent (10:10/29/2016 Darell GUTIERREZ) (Ack 10:31 Cesar) (10:59 Cesar) Sports Announcer (Continuous) (Respiratory Distress) (:10/29/2016 Darell GUTIERREZ) (10:46 SReitz R.N.) Blood Culture (Yes) (unk) Urgent (:10/29/2016 Darell GUTIERREZ) (Ack 10:31 Cesar) (10:45 KWilliams R.N.) Cardiac Panel Stat (:10/29/2016 Darell GUTIERREZ) (Ack 10:31 Cesar) (10:45 KWcaams R.N.) PT with INR Urgent (10:10/29/2016 Darell GUTIERREZ) (Ack 10:31 Cesar) (10:45 KWcaams R.N.) Troponin-I Urgent (10:10/29/2016 Darell GUTIERREZ) (Ack 10:31 Cesar) (10:45 KWilliams R.N.) Oxygen (2 L/min) (NC) (10:10/29/2016 Darell GUTIERREZ) (10:46 Matteo R.N.) EKG - ER Stat (10:10/29/2016 Darell GUTIERREZ) (10:46 Matteo R.N.) Pulse oximeter (10:10/29/2016 Darell GUTIERREZ) (10:45 KWcaams R.N.) BNP Urgent (:10/29/2016 Darell GUTIERREZ) (Ack 10:31 Cesar) (10:45 KWilliams R.N.) PCT (Procalcitonin) Urgent (10:10/29/2016 Darell GUTIERREZ) (Ack 10:31 Cesar) (10:45 KWilliams R.N.) Lactate, Serum Urgent (10:25 10/29/2016 Darell GUTIERREZ) (Ack 10:31 RKaruga) (10:45 Jake R.N.) MEDICATION ORDERS: DuoNeb Neb Tx 1 unit dose (NOW) (10:46 10/29/2016 Matteo Julien.N. per protocol) (10:48 Matteo R.N.) IV FLUIDS: IV Saline Lock (10:24 10/29/2016 Darell GUTIERREZ) (Ack 10:46 Matteo R.N.) Furosemide IV 80 mg (NOW) (12:54 10/29/2016 Darell GUTIERREZ) (Ack 12:58 Matteo R.N.) (13:16 Matteo R.N.) ORDER SHEET NOTES: [Electronically signed by Patience Corral R.N. (18:05 10/29/2016)] [Electronically signed by Suleman Sevilla MD (22:50 10/29/2016)] [Electronically locked/signed by Patience Corral R.N. (18:05 10/29/2016)]
--- NOTE | 2016-10-29 12:24 | ED NURSING NOTES ---
Clinical Report - Nurses [facility] [address] [place] [address] 10/29/2016 10:16 Patient: MERLIN FORD TRIAGE Triage time 10:29. Acuity: LEVEL 3. Chief Complaint: COUGH and WHEEZING. Alert. No acute distress. SEPSIS SCREEN: Sepsis Screen. Infection suspected/documented. Respiratory rate greater than 20. Physician notified. ZAIDA COMA SCORE: Butler Coma Scale: 15- eyes open spontaneously (4); best verbal response- oriented x 4 (5); best motor response- obeys commands (6). --10:36 Patience Corral R.N. 10:29 10/29/16. BP: 139/60. HR: 89. RR: 26. O2 saturation: 94%. Temp: 97.6 F. Pain level now: 0/10. Additional comments: rr: pt on home o2. . --10:36 Patience Corral R.N. Weight: 64.8 kg stated. Height/Length: 61 inches Per Patient. BMI: 27. --10:34 Patience Corral R.N. Medications Carvedilol Oral (Tablet 6.25 mg) 1 tablet, twice daily. --10:37 Patience Corral R.N. Levothyroxine Sodium Oral 88 mcg, daily. --10:37 Patience Corral R.N. HydrALAZINE HCl Oral (Tablet 25 mg) 1 tablet, twice daily. --10:38 Patience Corral R.N. Ipratropium-Albuterol Inhalation. --10:38 Patience Corral R.N. Lantus Subcutaneous 23 units, every PM. --10:39 Patience Corral R.N. Coumadin Oral 3 mg, daily. --10:39 Patience Corral R.N. Digoxin Oral 0.125 mg, 1/2 tab daily. --10:40 Patience Corral R.N. Isosorbide Mononitrate ER Oral 60mg daily. --10:41 Patience Corral R.N. Furosemide Oral 80 mg, 2x a day. --10:41 Patience Corral R.N. Cozaar Oral 100 mg, daily. --10:41 Patience Corral R.N. Pravachol Oral (Tablet 40 mg) 1 tablet, daily. --10:41 Patience Corral R.N. HumaLOG Subcutaneous. --10:42 Patience Corral R.N. Allergies No Known Drug Allergy. --10:38 Patience Corral R.N. History Arrived by private vehicle. Historian: patient. Accompanied by family. Primary physician (Dr. Valdez). Onset. (had a cough since , she went to the "rehab facility and she has only been home for about a week." She continues to get worse.). ( Sent over by Dr Valdez. She was seen at his office a couple days ago. Started on antibiotics; called to follow up on her and she was advised to go to the ED for chest xray and further testing.). 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 PAST MEDICAL HX: Immunizations: up-to-date. SOCIAL HX: Never smoker. No alcohol use or drug use. No infectious disease exposure. ABUSE ASSESSMENT: No report of abuse. SELF HARM ASSESSMENT: A self harm assessment was performed. The patient answered "no" to the question "Do you have thoughts of harming or killing yourself?" and "Have you recently had thoughts about harming or killing others?". NUTRITIONAL RISK ASSESSMENT: The nutritional risk assessment revealed no deficiencies. FUNCTIONAL ASSESSMENT: Functional assessment: no impairments noted. LEARNING NEEDS ASSESSMENT: The learning needs assessment revealed no barriers. --10:36 Patience Corral R.N. ( Correction to prior charting: Family states pt. is getting better from the pnuemonia but José Miguel is concerned she is becoming to anemic.). --10:43 Patience Corral R.N. PROBLEMS: Coumadin Toxicity. Hypoxia. Muscle Spasm. Leukocytosis. Hypothyroidism. Arrhythmia. Congestive Heart Failure. Near Syncope. Pneumonia. Diabetes Mellitus. Atrial Fibrillation. Hypertension. --10:42 Patience Corral R.N. ADDITIONAL SURGERIES: Tonsillectomy. --10:42 Patience Corral R.N. Interventions ID band on patient. Transported via wheelchair. --10:36 Patience Corral R.N. PHYSICAL ASSESSMENT 10:30. Ambulatory to room. GENERAL / NEURO / PSYCH: Alert. Oriented X 4. Appears in no acute distress. HEENT: Mucous membranes are pink. RESPIRATORY: Mild respiratory distress. Cough productive of scant amounts of thick, green, brown sputum. CVS: Capillary refill less than 2 seconds. SKIN: Skin is warm and dry. --10:44 Patience Corral R.N. EXTREMITIES: Bilateral 3+ edema of the lower extremities involving both feet, both ankles and both lower legs. --12:58 Patience Corral R.N. NURSING PROGRESS NOTES 10:29. Oxygen administered by nasal cannula at 2 liters. vehicle monitor technician, pulse oximeter and NIBP monitor placed on patient; vehicle monitor technician- Lead II; monitor alarms on. Patient gowned. Head of bed elevated. Two patient identifiers checked. Call light placed in reach. Side rails up x 2. Bed placed in lowest position. Brakes of bed on. Patient ready for evaluation- chart flagged. --10:45 Patience Corral R.N. 10:31 10/29/2016 Site #1 started via IV in the left antecubital space with an 20g angiocath, with aseptic technique and good blood return; one attempt. Blood drawn: rainbow set and cultures x1. Labeled in the presence of the patient and sent to the lab. Saline lock flushed with 10 mL saline (accessed by JONAH Walker. Lactate drawn.). --10:45 Patience Corral R.N. EKG time: (1048). EKG was ordered, performed by a tech and shown to the ED physician. --10:46 Patience Corral R.N. ( Rt at the bedside for eval/treatment.). --10:46 Patience Corral R.N. 10:48 10/29/2016 Duoneb (Ipratropium-Albuterol) Neb TX 1 unit dose given. Given by the respiratory therapist. Allergies verified and confirmed 5 rights. --10:48 Patience Corral R.N. 11:48 10/29/16. BP: 130/48 taken on the left arm, via an automated monitor, while sitting. ED physician notified. HR: 81 (regular, normal rate and strong). RR: 22 (regular, unlabored and normal). O2 saturation: 97% on nasal cannula at 1 liters/minute. O2 started via nasal cannula. RN notified. --11:49 Jorge Shaver 12:52 10/29/16. BP: 145/62. HR: 79 (irregular and normal rate). RR: 27. O2 saturation: 97%. Pain level now: 0/10. --12:53 Patience Corral R.N. 13:16 10/29/2016 Started 80 mg of Furosemide IVPB in bag #1 50 mL; at 90 mL/hr over 30 minute(s) via site #1 via IV pump. Allergies verified and confirmed 5 rights. IV patency established. IV site checked: no pain, redness, or swelling. IV flushed thoroughly pre- and post-medication administration. --13:16 Patience Corral R.N. ( attempt to call report. RN to call back.). --13:42 Patience Corral R.N. 13:46 10/29/2016 Furosemide IVPB Discontinued: infused. Total amount infused: 50 mL. IV patency established. IV site checked: no pain, redness, or swelling. IV flushed thoroughly. --18:02 Patience Corral R.N. DISPOSITION / DISCHARGE Report was given to a nurse via a phone call. Report included patient's care, treatment, medications, reviewed medication reconcilliation, and condition (including any recent changes or anticipated changes). All questions were answered. --13:47 Patience Corral R.N. Admitted to Acute Care. Transported via stretcher by [employer] with O2. Patient's personal items; items were placed in belongings bag, given to the patient and transported with the patient. --13:47 Patience Corral R.N. 17:59 10/29/16. BP: 133/58. HR: 83. RR: 22. O2 saturation: 97%. Temp: 98.3 F. Pain level now 0/10. --18:03 Patience Corral R.N. 13:55 10/29/2016 Site #[address] upon admission; patent and no signs of infiltration. Good blood return present. Converted to saline lock and flushed with 10 mL saline; flushes easily. --18:04 Patience Corral R.N. Departure time: 1355. ( all discharge done at 1355.). --18:04 Patience Corral R.N. Locked/Released at 10/29/2016 18:05 by Patience Corral R.N.
--- NOTE | 2016-10-29 12:24 | ED ORDER SUMMARY ---
..... 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 (Continuous) (Respiratory Distress) (:10/29/2016 Darell GUTIERREZ) (10:46 SReitz R.N.) Blood Culture (Yes) (unk) Urgent (:10/29/2016 Darell GUTIERREZ) (Ack 10:31 Cesar) (10:45 KWilliams R.N.) Cardiac Panel Stat (:10/29/2016 Darell GUTIERREZ) (Ack 10:31 Cesar) (10:45 KWcaams R.N.) PT with INR Urgent (10:10/29/2016 Darell GUTIERREZ) (Ack 10:31 Cesar) (10:45 KWcaams R.N.) Troponin-I Urgent (10:10/29/2016 Darell GUTIERREZ) (Ack 10:31 Cesar) (10:45 KWilliams R.N.) Oxygen (2 L/min) (NC) (10:10/29/2016 Darell GUTIERREZ) (10:46 Matteo R.N.) EKG - ER Stat (10:10/29/2016 Darell GUTIERREZ) (10:46 Matteo R.N.) Pulse oximeter (10:10/29/2016 Darell GUTIERREZ) (10:45 KWcaams R.N.) BNP Urgent (:10/29/2016 Darell GUTIERREZ) (Ack 10:31 Cesar) (10:45 KWilliams R.N.) PCT (Procalcitonin) Urgent (10:10/29/2016 Darell GUTIERREZ) (Ack 10:31 Cesar) (10:45 KWilliams R.N.) Lactate, Serum Urgent (10:25 10/29/2016 Darell GUTIERREZ) (Ack 10:31 RKaruga) (10:45 Jake R.N.) MEDICATION ORDERS: DuoNeb Neb Tx 1 unit dose (NOW) (10:46 10/29/2016 Matteo Julien.N. per protocol) (10:48 Matteo R.N.) IV FLUIDS: IV Saline Lock (10:24 10/29/2016 Darell GUTIERREZ) (Ack 10:46 Matteo R.N.) Furosemide IV 80 mg (NOW) (12:54 10/29/2016 Darell GUTIERREZ) (Ack 12:58 Matteo R.N.) (13:16 Matteo R.N.) ORDER SHEET NOTES: [Electronically signed by Patience Corral R.N. (18:05 10/29/2016)] [Electronically signed by Suleman Sevilla MD (22:50 10/29/2016)] [Electronically locked/signed by Patience Corral R.N. (18:05 10/29/2016)]
--- NOTE | 2016-10-29 13:50 | History & Physical Report ---
Admission Admit Date 10/29/16 Information Source Information Source: Self Reliability: Good History Chief Complaint shortness of breath and leg swelling History of Present Illness Patient is a 86 year old female presenting with a few week history of cough, leg swelling and shortness of breath. Patient had been ill since the end of august where she developed a cold and continued to have shortness of breath. Patient was treated with a course of antibioitics and had some improvement however patient did not feel like her shortness of breath ever resolved. Patient after her admission was sent to a rehab center. There the patient had persistent shortness of breath. Patient then developed worsening edema despite being adherent to her medication regimen. Patients legs became painful and tense and it was at this point where the patient decided to come to the Er. Patient History 1. Acute exacerbation of CHF (congestive heart failure) 2. Diabetes mellitus 3. Hypertension 4. Atrial fibrillation 5. CKD (chronic kidney disease) stage 2, GFR 60-89 ml/min Social History Pt doesn not smoke (she has a smoking history), does not drink or use illicit substances. Family History MOTHER (CAD). FATHER (lung cancer). Advance Directive Durable POA-Healthcare Medications and Allergies Medications Home Medications albuterol inhaler furosemide 80 mg bid Lantus 23 units qhs isosorbide dintrate 60 mg tid digoxin .125 mg Carvedilol 6.25 mg daily levothyroxine 60 mcg daily cozaar 100 mg daily pravachol 40 mg daily Current Medications Sig/Nilson Start time Last Medication Dose Route Stop Time Status Admin Levothyroxine Sodium 88 MCG 0600 10/30 0600 AC PO Hydralazine HCl 25 MG BID 10/29 2100 AC PO Insulin Glargine 25 UNITS QHS 10/29 2100 AC SC Furosemide 120 MG DIUB 10/29 1900 AC 10/29 PO 1854 Warfarin Sodium 3 MG 1400 10/29 1830 AC 10/29 PO 1847 Carvedilol 6.25 MG BIDWC 10/29 1800 AC 10/29 PO 1847 Insulin Human Lispro See Dose ACHS 10/29 1630 AC Insts (1) SC Isosorbide 30 MG DAILY 10/29 1528 AC 10/29 Mononitrate PO 1637 Digoxin 62.5 MCG DAILY 10/29 1527 AC 10/29 PO 1637 Dose Instructions: (1)Insulin Human Lispro: LOW DOSE: ACCUCHECK AND SLIDING SCALE >>To change sliding scale DISCONTINUE this order and enter a NEW order. Thanks< Allergies Coded Allergies: No Known Drug Allergy (10/29/16) Review of Systems Constitutional Malaise. Denies: Fever, Chills, Sweats, Weakness, Other. Eyes Denies: Pain, Vision Change, Conjunctival Inflammation, Eyelid Inflammation, Redness, Other. ENT Denies: Ear Pain, Ear Discharge, Nose Pain, Nasal Discharge, Nasal Congestion, Mouth Pain, Mouth Swelling, Throat Pain, Throat Swelling, Other. Respiratory Cough, SOB w/exertion, Wheezing. Denies: Dry, Hemoptysis, Pleuritic Pain. Cardiovascular Edema. Denies: Chest Pain, Palpitations, Light-headedness. Gastrointestinal Denies: Nausea, Vomiting, Abdominal Pain, Diarrhea, Constipation, Melena, Hematochezia, Other. Genitourinary Denies: Dysuria, Frequency, Incontinence, Hematuria, Retention, Other. Musculoskeletal Leg Pain. Denies: Neck Pain, Shoulder Pain, Arm Pain, Back Pain, Hand Pain, Foot Pain, Other. Skin Denies: Rash, Lesions, Jaundice, Bruising, Other. Physical Exam Vital Signs / I&Os Vital Signs Date Time Temp Pulse Resp B/P Pulse O2 O2 Flow FiO2 Ox Delivery Rate 10/29 1847 72 10/29 1834 97.7 72 17 123/50 98 Nasal 1.0 Cannula 10/29 1637 84 10/29 1452 97.9 84 17 146/62 97 Nasal 1.0 Cannula 10/29 1050 2.0 General Appearance Alert, Oriented X3, No acute distress HEENT Normal exam, Atraumatic, Moist mucous membranes Lungs Normal exam, Clear to auscultation Cardiovascular irregularly irregular rhythm Abdomen Soft, No tenderness Extremities No cyanosis, No edema, Normal pulses Skin No Rashes, No Breakdown Neurological Normal speech, Cranial nerves intact, Strength 5/5 x4 ext's Psych/Mental Status Mental status normal LAB Results Laboratory Tests 10/29 10/29 10/29 10/29 1041 1041 1041 1041 Chemistry Plasma Sodium (136 - 145 mmol/L) 144 Plasma Potassium (3.5 - 5.1 mmol/L) 3.9 Plasma Chloride (98 - 107 mmol/L) 102 CO2 (Enzymatic) (21 - 32 mmol/L) 37 BUN (7 - 18 mg/dL) 32 Creatinine (0.6 - 1.3 mg/dL) 1.2 Est GFR ( Amer) (mL/min) 55.00 Est GFR (Non-Af Amer) (mL/min) 45.38 Glucose (70 - 110 mg/dL) 167 Lactic Acid (0.4 - 2.0 mmol/L) 1.2 Plasma Calcium (8.5 - 10.1 mg/dL) 8.9 Plasma Magnesium (1.8 - 2.4 mg/dL) 2.1 Total Bilirubin (0.0 - 1.0 mg/dL) 0.8 AST (15 - 37 U/L) 22 ALT (12 - 78 U/L) 40 Alkaline Phosphatase (46 - 116 U/L) 105 Creatine Kinase (24 - 260 U/L) 31 Troponin (0.00 - 1.5 ng/mL) 0.05 B-Natriuretic Peptide (5 - 100 pg/ml) 823 Total Protein (6.4 - 8.2 g/dL) 7.4 Albumin (3.3 - 5.0 g/dL) 2.8 Procalcitonin (0 - 0.5 ng/mL) <0.5 Coagulation INR (0.8 - 1.2) 2.0 Hematology WBC (4.5 - 11.5 K/uL) 9.8 RBC (4.00 - 5.20 M/uL) 2.72 Hgb (12.0 - 16.0 gm/dL) 8.0 Hct (36.0 - 46.0 %) 25.9 MCV (80 - 100 fL) 95 MCH (26 - 34 pg) 30 RDW (11.6 - 14.8 %) 20.0 Neut % (Auto) (50 - 75 %) 75.9 Lymph % (Auto) (25 - 40 %) 12.2 [place] % (Auto) (3 - 14 %) 11.0 Eos % (Auto) (0 - 4 %) 0.7 Baso % (Auto) (0 - 2 %) 0.2 Plt Count, EDTA (150 - 400 K/uL) 267 PUBS MCHC (31 - 37 g/dL) 31 Microbiology Date/Time Procedure - Status Source Growth 10/29 1041 Blood Culture - RECD BLOOD Assessment and Plan Problem List 1. Acute exacerbation of CHF (congestive heart failure) Plan - Pt is presenting with acute exacerbation of chf - Pt has radiological evidence of bilateral pleual effusions - Pts home dose of lasix was seen to be lower than the dose she was discharged with - Will resume lasix 120 mg bid - will place on telemetry - will continue with goal directed therapy- incluing lasix at oringal dose, will continue with digoxin, carvedilol, isosorbide and cozaar - will obtain daily is and os 2. Diabetes mellitus Plan - will continue with home regimen of 23 units of lantus qhs - will do low dose sliding scale 3. Hypertension Plan - pt has been normotensive - will continue with gdt medications as described above 4. Atrial fibrillation Status Chronic Plan - pt has been rate controlled - will continue with home coumadin dose - daily inrs - dosing as per pharmacy 5. CKD (chronic kidney disease) stage 2, GFR 60-89 ml/min Plan - improved compared to previous admission - will continue to monitor
[2016-10-29 14:52] VITALS: BP 146/62
[2016-10-29] MEDS ORDERED: IPRATROPIUM BROMIDE/ (17:20)
[2016-10-29] MEDS ORDERED: LANTUS SOL100 UNITS/ SC (17:22)
[2016-10-29] MEDS ORDERED: COUMADIN3 MG PO (17:23)
[2016-10-29] MEDS ORDERED: ISOSORBIDE MONO60 MG PO (17:24)
[2016-10-29] MEDS ORDERED: FUROSEMIDE40 MG PO (17:25)
[2016-10-29] MEDS ORDERED: COZAAR100 MG PO (17:25)
[2016-10-29] MEDS ORDERED: HUMALOG KWI100 MG/ML SC ×2 (17:41→17:44)
[2016-10-29 18:34] VITALS: BP 123/50
--- NOTE | 2016-10-29 22:50 | ED DISCHARGE INSTRUCTIONS ---
Patient: MERLIN FORD General Instructions [facility] VisitID: [id number] [address] [place] [address] 86y, F Registration Date/Time: 10/29/2016 CHF - WORSENING ANEMIA HB 8.0. (Electronically signed by Suleman Sevilla MD 10/29/2016 22:50)
--- NOTE | 2016-10-29 22:50 | ED MAR SUMMARY ---
..... Medication Administration Record [facility] [address] [place] [address] Patient: MERLIN FORD Visit ID: [id number] 86y, F Weight: 64.8 kg Height/Length: 61 in BMI: 27 ALLERGIES: No Known Drug Allergy Given 10:48 10/29/2016 Patience Corral R.N. Medication Administered: DUONEB [NEB TX] (IPRATROPIUM-ALBUTEROL), Dose: 1 unit dose Neb TX. Medication Ordered: DuoNeb Neb Tx 1 unit dose (NOW). Start 13:16 10/29/2016 Patience Corral R.N., Stop 13:46 10/29/2016 Patience Corral R.N. Medication Administered: FUROSEMIDE [IVPB], Dose: 80 mg IVPB over 30 minute(s), Rate: 90 mL/hr, Dispensed: 50 mL bag, Site: #1 left AC. Medication Ordered: Furosemide IV 80 mg (NOW).
--- NOTE | 2016-10-29 22:50 | ED MED RECONCILIATION SUMMARY ---
Patient: MERLIN FORD Medication Reconciliation Report [facility] VisitID: [id number] [address] [place] [address] 86y, F Registration Date/Time: 10/29/2016 Weight: 64.8 kg Height/Length: 61 in. BMI: 27.0 ALLERGIES: No Known Drug Allergy The patient's Home Medications are listed below: THE FOLLOWING MEDICATIONS NEED TO BE RECONCILED: Carvedilol Oral (6.25 mg) 1 tablet, twice daily Coumadin Oral 3 mg, daily Cozaar Oral 100 mg, daily Digoxin Oral 0.125 mg, 1/2 tab daily Furosemide Oral 80 mg, 2x a day HumaLOG Subcutaneous HydrALAZINE HCl Oral (25 mg) 1 tablet, twice daily Ipratropium-Albuterol Inhalation Isosorbide Mononitrate ER Oral 60mg daily Lantus Subcutaneous 23 units, every PM Levothyroxine Sodium Oral 88 mcg, daily Pravachol Oral (40 mg) 1 tablet, daily The source(s) of the original Home Medication information: Not obtained. The following Medications were given to the patient in the Emergency Department: Duoneb [Neb Tx] Neb TX 1 unit dose, administered: 10/29/2016 10:48:00 AM Furosemide [IVPB] IVPB bolus 0, then 80 mg 90 mL/hr, administered: 10/29/2016 1:16:00 PM The following Medications were prescribed to the patient: None.
--- NOTE | 2016-10-29 22:50 | ED DISCHARGE INSTRUCTIONS ---
Patient: MERLIN FORD General Instructions [facility] VisitID: [id number] [address] [place] [address] 86y, F Registration Date/Time: 10/29/2016 CHF - WORSENING ANEMIA HB 8.0. (Electronically signed by Suleman Sevilla MD 10/29/2016 22:50)
--- NOTE | 2016-10-29 22:50 | ED MED RECONCILIATION SUMMARY ---
Patient: MERLIN FORD Medication Reconciliation Report [facility] VisitID: [id number] [address] [place] [address] 86y, F Registration Date/Time: 10/29/2016 Weight: 64.8 kg Height/Length: 61 in. BMI: 27.0 ALLERGIES: No Known Drug Allergy The patient's Home Medications are listed below: THE FOLLOWING MEDICATIONS NEED TO BE RECONCILED: Carvedilol Oral (6.25 mg) 1 tablet, twice daily Coumadin Oral 3 mg, daily Cozaar Oral 100 mg, daily Digoxin Oral 0.125 mg, 1/2 tab daily Furosemide Oral 80 mg, 2x a day HumaLOG Subcutaneous HydrALAZINE HCl Oral (25 mg) 1 tablet, twice daily Ipratropium-Albuterol Inhalation Isosorbide Mononitrate ER Oral 60mg daily Lantus Subcutaneous 23 units, every PM Levothyroxine Sodium Oral 88 mcg, daily Pravachol Oral (40 mg) 1 tablet, daily The source(s) of the original Home Medication information: Not obtained. The following Medications were given to the patient in the Emergency Department: Duoneb [Neb Tx] Neb TX 1 unit dose, administered: 10/29/2016 10:48:00 AM Furosemide [IVPB] IVPB bolus 0, then 80 mg 90 mL/hr, administered: 10/29/2016 1:16:00 PM The following Medications were prescribed to the patient: None.
--- NOTE | 2016-10-29 22:50 | ED MAR SUMMARY ---
..... Medication Administration Record [facility] [address] [place] [address] Patient: MERLIN FORD Visit ID: [id number] 86y, F Weight: 64.8 kg Height/Length: 61 in BMI: 27 ALLERGIES: No Known Drug Allergy Given 10:48 10/29/2016 Patience Corral R.N. Medication Administered: DUONEB [NEB TX] (IPRATROPIUM-ALBUTEROL), Dose: 1 unit dose Neb TX. Medication Ordered: DuoNeb Neb Tx 1 unit dose (NOW). Start 13:16 10/29/2016 Patience Corral R.N., Stop 13:46 10/29/2016 Patience Corral R.N. Medication Administered: FUROSEMIDE [IVPB], Dose: 80 mg IVPB over 30 minute(s), Rate: 90 mL/hr, Dispensed: 50 mL bag, Site: #1 left AC. Medication Ordered: Furosemide IV 80 mg (NOW).
[2016-10-29 23:07] VITALS: BP 131/59
[2016-10-30] VITALS (15 sets, daily range): BP systolic 117–161; BP diastolic 41–64
--- NOTE | 2016-10-30 08:45 | Progress Note ---
Subjective General 86 year old female with cough, leg swelling and shortness of breath. Ill since the end of august with cold and shortness of breath. Treated with antibioitics however patient did not feel like her shortness of breath ever resolved. Sent to rehab center where she had persistent shortness of breath and then developed worsening edema despite being adherent to her medication regimen. Admitted for CHF exacerbation, DM, HTN, Afib and CKD. Also noted to have anemia. Pt reports feeling some improvement but had a spell of dyspnea and anxiety this AM. Denies cp/palp/dizzy, nausea or vomiting. Physical Exam Vital Signs / I&Os Vital Signs Date Time Temp Pulse Resp B/P Pulse O2 O2 Flow FiO2 Ox Delivery Rate 10/30 0832 81 10/30 0831 81 10/30 0653 97.3 87 16 160/61 97 Nasal 1.0 Cannula 10/30 0219 97.7 72 18 133/56 97 Nasal 1.0 Cannula 10/29 2307 98.2 81 18 131/59 97 Nasal 1.0 Cannula 10/29 2054 157/58 10/29 1945 1.0 10/29 1847 72 10/29 1834 97.7 72 17 123/50 98 Nasal 1.0 Cannula 10/29 1637 84 10/29 1452 97.9 84 17 146/62 97 Nasal 1.0 Cannula 10/29 1430 Nasal 1.0 Cannula 10/29 1050 2.0 I&O 10/29 0800 10/29 1600 10/30 0000 Intake Total 0 450 Output Total 194 550 Balance -194 -100 General Appearance Alert, Oriented X3, Cooperative, No acute distress Lungs Decreased breath sounds in both lung bases, worse on right with dullness to percussion. No wheeze. Cardiovascular Irregularly irregular. Abdomen Soft, No tenderness, No guarding Extremities No cyanosis, No clubbing, 2+ edema, decreased from admit. Skin No Rashes LAB Results Laboratory Tests 10/29 10/29 10/29 10/29 10/30 1041 1041 1041 1041 0530 Chemistry Plasma Sodium (136 - 145 mmol/L) 144 143 Plasma Potassium (3.5 - 5.1 mmol/L) 3.9 3.9 Plasma Chloride (98 - 107 mmol/L) 102 103 CO2 (Enzymatic) (21 - 32 mmol/L) 37 35 BUN (7 - 18 mg/dL) 32 31 Creatinine (0.6 - 1.3 mg/dL) 1.2 1.1 Est GFR ( Amer) (mL/min) 55.00 >60 Est GFR (Non-Af Amer) (mL/min) 45.38 50.17 Glucose (70 - 110 mg/dL) 167 156 Lactic Acid (0.4 - 2.0 mmol/L) 1.2 Plasma Calcium (8.5 - 10.1 mg/dL) 8.9 8.5 Plasma Magnesium (1.8 - 2.4 mg/dL) 2.1 2.0 Total Bilirubin (0.0 - 1.0 mg/dL) 0.8 AST (15 - 37 U/L) 22 ALT (12 - 78 U/L) 40 Alkaline Phosphatase (46 - 116 U/L) 105 Creatine Kinase (24 - 260 U/L) 31 Troponin (0.00 - 1.5 ng/mL) 0.05 B-Natriuretic Peptide (5 - 100 pg/ml) 823 Total Protein (6.4 - 8.2 g/dL) 7.4 Albumin (3.3 - 5.0 g/dL) 2.8 Procalcitonin (0 - 0.5 ng/mL) <0.5 Coagulation INR (0.8 - 1.2) 2.0 2.2 Hematology WBC (4.5 - 11.5 K/uL) 9.8 8.1 RBC (4.00 - 5.20 M/uL) 2.72 2.36 Hgb (12.0 - 16.0 gm/dL) 8.0 7.0 Hct (36.0 - 46.0 %) 25.9 22.3 MCV (80 - 100 fL) 95 94 MCH (26 - 34 pg) 30 30 RDW (11.6 - 14.8 %) 20.0 19.6 Neut % (Auto) (50 - 75 %) 75.9 65.5 Lymph % (Auto) (25 - 40 %) 12.2 18.9 [place] % (Auto) (3 - 14 %) 11.0 13.8 Eos % (Auto) (0 - 4 %) 0.7 1.5 Baso % (Auto) (0 - 2 %) 0.2 0.3 Plt Count, EDTA (150 - 400 K/uL) 267 246 PUBS MCHC (31 - 37 g/dL) 31 32 Microbiology Date/Time Procedure - Status Source Growth 10/29 1041 Blood Culture - RECD BLOOD Assessment and Plan Problem List 1. Acute exacerbation of CHF (congestive heart failure) Plan Diuresing well. Will monitor BNP and repeat CXR. 2. Diabetes mellitus Plan Stable. 3. Hypertension Plan Improved with diuresis. 4. Atrial fibrillation Status Chronic Plan Stable with controlled rate. 5. Symptomatic anemia Plan Transfusion ordered.
[2016-10-31 01:43] VITALS: BP 147/56
[2016-10-31 06:46] VITALS: BP 174/64
--- NOTE | 2016-10-31 07:27 | DIAGNOSTIC IMAGING REPORT ---
PROCEDURE: XR CHEST 1 VIEW INDICATION: chf exacerbation/effusion TECHNIQUE: Portable AP view 05:15 a.m. COMPARISON: Chest x-ray 10/29/2016 FINDINGS: Mild cardiomegaly with progression of large right pleural effusion and pulmonary vascular congestion. There is also a mild left pleural effusion. Bibasilar infiltrates are unchanged. Thorax is normal. IMPRESSION: 1. Progression of CHF with bibasilar infiltrates
[2016-10-31 10:30] VITALS: BP 137/49
--- NOTE | 2016-10-31 14:09 | Progress Note ---
Subjective General 86 year old female with cough, leg swelling and shortness of breath. Ill since the end of august with cold and shortness of breath. Treated with antibioitics however patient did not feel like her shortness of breath ever resolved. Sent to rehab center where she had persistent shortness of breath and then developed worsening edema despite being adherent to her medication regimen. Admitted for CHF exacerbation, DM, HTN, Afib and CKD. Also noted to have anemia. Pt reports feeling some improvement but had a spell of dyspnea and anxiety this AM. Denies cp/palp/dizzy, nausea or vomiting. Admitted for increased diuresis. Not given antibiotics due to lack of infiltrate on CXR, normal PCT and WBC. Still sob at times. Not feeling improved. Persistent wet cough. Physical Exam Vital Signs / I&Os Vital Signs Date Time Temp Pulse Resp B/P Pulse O2 O2 Flow FiO2 Ox Delivery Rate 10/31 1030 97.5 73 16 137/49 96 Nasal 3.0 Cannula 10/31 1022 3.0 10/31 0912 82 10/31 0912 82 10/31 0912 174/64 10/31 0817 2.0 10/31 0646 97.5 82 16 174/64 98 Nasal 3.0 Cannula 10/31 0143 97.5 71 18 147/56 99 Nasal 3.0 Cannula 10/30 2233 97.7 74 20 160/64 97 Nasal 3.0 Cannula 10/30 2226 Nasal 2.0 Cannula 10/30 2150 2.0 10/30 2143 168/69 10/30 1829 97.5 77 19 152/60 100 Nasal 2.0 Cannula 10/30 1729 97.9 70 19 138/50 100 Nasal 2.0 Cannula 10/30 1629 97.7 65 19 152/52 100 Nasal 2.0 Cannula 10/30 1529 97.7 63 17 150/52 100 Nasal 2.0 Cannula 10/30 1514 97.7 61 16 161/57 100 Nasal 2.0 Cannula 10/30 1443 97.7 72 17 139/59 100 Nasal 2.0 Cannula 10/30 1442 97.7 72 16 139/59 100 Nasal 2.0 Cannula I&O 10/30 0800 10/30 1600 10/31 0000 Intake Total 480 650 880 Output Total 1135 657 307 Balance -655 -7 573 General Appearance Alert, Oriented X3, Cooperative, Mild distress Lungs Bilateral rhonchi Cardiovascular Regular rate and rhythm Abdomen Normal bowel sounds, Soft, No tenderness Extremities 1+ edema LAB Results Laboratory Tests 10/31 10/31 10/31 0510 0510 1000 Chemistry Plasma Sodium (136 - 145 mmol/L) 142 Plasma Potassium (3.5 - 5.1 mmol/L) 3.9 Plasma Chloride (98 - 107 mmol/L) 102 CO2 (Enzymatic) (21 - 32 mmol/L) 37 BUN (7 - 18 mg/dL) 31 Creatinine (0.6 - 1.3 mg/dL) 1.1 Est GFR ( Amer) (mL/min) >60 Est GFR (Non-Af Amer) (mL/min) 50.17 Glucose (70 - 110 mg/dL) 78 Plasma Calcium (8.5 - 10.1 mg/dL) 8.3 Plasma Magnesium (1.8 - 2.4 mg/dL) 1.9 Total Bilirubin (0.0 - 1.0 mg/dL) 0.9 AST (15 - 37 U/L) 18 ALT (12 - 78 U/L) 27 Alkaline Phosphatase (46 - 116 U/L) 81 B-Natriuretic Peptide (5 - 100 pg/ml) 729 Total Protein (6.4 - 8.2 g/dL) 6.1 Albumin (3.3 - 5.0 g/dL) 2.5 Coagulation INR (0.8 - 1.2) 2.3 Hematology WBC (4.5 - 11.5 K/uL) 6.7 RBC (4.00 - 5.20 M/uL) 3.07 Hgb (12.0 - 16.0 gm/dL) 8.9 Hct (36.0 - 46.0 %) 28.4 MCV (80 - 100 fL) 92 MCH (26 - 34 pg) 29 RDW (11.6 - 14.8 %) 18.3 Neut % (Auto) (50 - 75 %) 56.9 Lymph % (Auto) (25 - 40 %) 25.4 [place] % (Auto) (3 - 14 %) 16.6 Eos % (Auto) (0 - 4 %) 0.7 Baso % (Auto) (0 - 2 %) 0.4 Plt Count, EDTA (150 - 400 K/uL) 209 PUBS MCHC (31 - 37 g/dL) 32 Assessment and Plan Problem List 1. Acute exacerbation of CHF (congestive heart failure) Plan Suspect concomitant pneumonia present since admit, though masked by CHF. Will increase diuresis and start IV antibiotics. 2. Symptomatic anemia Plan Transfused. 3. Pneumonia Plan Pneumonia present since admit though not clearly recognized due to CHF. It had been diagnosed as outpt in my office. Will initiate IV antibiotics.
[2016-10-31 14:35] VITALS: BP 139/48
[2016-10-31 18:45] VITALS: BP 141/51
[2016-10-31 23:33] VITALS: BP 165/61
[2016-11-01] VITALS (7 sets, daily range): BP systolic 132–183; BP diastolic 41–73
--- NOTE | 2016-11-01 07:28 | Progress Note ---
Subjective General 86 year old female with cough, leg swelling and shortness of breath. Ill since the end of august with cold and shortness of breath. Treated with antibioitics however patient did not feel like her shortness of breath ever resolved. Sent to rehab center where she had persistent shortness of breath and then developed worsening edema despite being adherent to her medication regimen. Admitted for CHF exacerbation, DM, HTN, Afib, anemia and CKD. Reports "coughing all night and shortness of breath. Denies cp/palp, nausea or vomiting. Physical Exam Vital Signs / I&Os Vital Signs Date Time Temp Pulse Resp B/P Pulse O2 O2 Flow FiO2 Ox Delivery Rate 11/01 0711 98.1 79 18 178/69 96 Nasal 3.0 Cannula 11/01 0247 178/68 11/01 0245 97.9 67 20 183/73 100 Nasal 3.0 Cannula 10/31 2333 98.6 74 20 165/61 100 Nasal 3.0 Cannula 10/31 2105 141/51 10/31 2046 3.0 10/31 1947 Nasal 3.0 Cannula 10/31 1845 98.1 71 20 141/51 98 Nasal 3.0 Cannula 10/31 1719 67 10/31 1435 97.7 82 20 139/48 89 Nasal 3.0 Cannula 10/31 1030 97.5 73 16 137/49 96 Nasal 3.0 Cannula 10/31 1022 3.0 10/31 0912 82 10/31 0912 82 10/31 0912 174/64 10/31 0817 2.0 I&O 10/31 0800 10/31 1600 11/01 0000 Intake Total 600 510 600 Output Total 280 687 950 Balance 320 -177 -350 General Appearance Alert, Oriented X3, Cooperative, Mild distress Lungs Bilateral rales in lower lung [place]. Cardiovascular Regular rate and rhythm Abdomen Normal bowel sounds, Soft, No tenderness Extremities 2+ edema, bruise on left randall since admission. Seen by wound care nurse and covered with a protective patch. No break in skin. Skin No Rashes LAB Results Laboratory Tests 10/31 11/01 11/01 1000 0530 0530 Chemistry Plasma Sodium (136 - 145 mmol/L) 140 Plasma Potassium (3.5 - 5.1 mmol/L) 4.2 Plasma Chloride (98 - 107 mmol/L) 100 CO2 (Enzymatic) (21 - 32 mmol/L) 39 BUN (7 - 18 mg/dL) 32 Creatinine (0.6 - 1.3 mg/dL) 1.1 Est GFR ( Amer) (mL/min) >60 Est GFR (Non-Af Amer) (mL/min) 50.17 Glucose (70 - 110 mg/dL) 192 Plasma Calcium (8.5 - 10.1 mg/dL) 8.6 Plasma Magnesium (1.8 - 2.4 mg/dL) 1.9 Total Bilirubin (0.0 - 1.0 mg/dL) 0.5 AST (15 - 37 U/L) 21 ALT (12 - 78 U/L) 30 Alkaline Phosphatase (46 - 116 U/L) 99 B-Natriuretic Peptide (5 - 100 pg/ml) 1110 Total Protein (6.4 - 8.2 g/dL) 6.7 Albumin (3.3 - 5.0 g/dL) 2.7 Coagulation INR (0.8 - 1.2) 2.3 2.8 Hematology WBC (4.5 - 11.5 K/uL) 8.9 RBC (4.00 - 5.20 M/uL) 3.32 Hgb (12.0 - 16.0 gm/dL) 9.6 Hct (36.0 - 46.0 %) 30.7 MCV (80 - 100 fL) 93 MCH (26 - 34 pg) 29 RDW (11.6 - 14.8 %) 18.7 Neut % (Auto) (50 - 75 %) 68.3 Lymph % (Auto) (25 - 40 %) 17.5 [place] % (Auto) (3 - 14 %) 12.6 Eos % (Auto) (0 - 4 %) 1.3 Baso % (Auto) (0 - 2 %) 0.3 Plt Count, EDTA (150 - 400 K/uL) 205 PUBS MCHC (31 - 37 g/dL) 31 Assessment and Plan Problem List 1. Acute exacerbation of CHF (congestive heart failure) Plan Improved diuresis yesterday with IV lasix but still dyspneic and bnp has increased. 2. Diabetes mellitus Plan Stable on sliding scale. 3. Atrial fibrillation Status Chronic Plan Stable on digoxin. Will check level. 4. Pneumonia Plan On IV antibiotics. 5. Symptomatic anemia Plan Transfused.
[2016-11-02 01:26] VITALS: BP 147/71
--- NOTE | 2016-11-02 06:31 | DIAGNOSTIC IMAGING REPORT ---
PROCEDURE: XR CHEST 1 VIEW INDICATION: chf/pneumonia TECHNIQUE: Portable AP view 05:34 a.m. COMPARISON: Chest x-ray 10/31/2016 FINDINGS: Mild cardiomegaly with improved pulmonary vascular congestion. Mild improvement of the large right and mild left pleural effusions. There is bibasilar consolidation. Thorax is normal. IMPRESSION: 1. Mildly improved CHF with bilateral pleural effusions 2. Bibasilar infiltrates versus atelectasis.
--- NOTE | 2016-11-02 06:58 | Progress Note ---
Subjective General 86 year old female with cough, leg swelling and shortness of breath. Ill since the end of august with cold and shortness of breath. Treated with antibioitics however patient did not feel like her shortness of breath ever resolved. Sent to rehab center where she had persistent shortness of breath and then developed worsening edema despite being adherent to her medication regimen. Admitted for CHF exacerbation, DM, HTN, Afib, anemia and CKD. Feeling improved. Coughing less and less SOB. Denies cp/palp/nausea, vimiting. Physical Exam Vital Signs / I&Os Vital Signs Date Time Temp Pulse Resp B/P Pulse O2 O2 Flow FiO2 Ox Delivery Rate 11/02 0309 Nasal 2.0 Cannula 11/02 0126 98.6 66 16 147/71 95 Nasal 2.0 Cannula 11/01 2324 Nasal 2.0 Cannula 11/01 2240 98.1 84 16 155/60 96 Nasal 2.0 Cannula 11/01 2132 178/41 11/01 2131 2.0 11/01 1903 97.7 67 20 178/41 100 Nasal 2.0 Cannula 11/01 1801 75 11/01 1447 97.5 78 20 163/61 100 Nasal 2.0 Cannula 11/01 1156 2.0 11/01 1054 98.8 66 20 132/50 100 Nasal 2.0 Cannula 11/01 0930 2.0 11/01 0835 178/69 11/01 0834 79 11/01 0834 79 11/01 0711 98.1 79 18 178/69 96 Nasal 3.0 Cannula I&O 11/01 0800 11/01 1600 11/02 0000 Intake Total 240 560 350 Output Total 703 600 800 Balance -463 -40 -450 General Appearance Alert, Oriented X3, Cooperative, No acute distress Lungs Crackles in bases. Cardiovascular Regular rate and rhythm Abdomen Normal bowel sounds, Soft, No tenderness Extremities No cyanosis, No clubbing, Trace edema. Skin Bruise on left randall resolving. LAB Results Laboratory Tests 11/02 11/02 11/02 0530 0530 0530 Chemistry Plasma Sodium (136 - 145 mmol/L) 142 Plasma Potassium (3.5 - 5.1 mmol/L) 4.2 Plasma Chloride (98 - 107 mmol/L) 100 CO2 (Enzymatic) (21 - 32 mmol/L) 39 BUN (7 - 18 mg/dL) 33 Creatinine (0.6 - 1.3 mg/dL) 1.1 Est GFR ( Amer) (mL/min) >60 Est GFR (Non-Af Amer) (mL/min) 50.17 Glucose (70 - 110 mg/dL) 153 Plasma Calcium (8.5 - 10.1 mg/dL) 8.8 Plasma Magnesium (1.8 - 2.4 mg/dL) 1.9 Total Bilirubin (0.0 - 1.0 mg/dL) 0.6 AST (15 - 37 U/L) 21 ALT (12 - 78 U/L) 25 Alkaline Phosphatase (46 - 116 U/L) 94 B-Natriuretic Peptide (5 - 100 pg/ml) 1170 Total Protein (6.4 - 8.2 g/dL) 6.7 Albumin (3.3 - 5.0 g/dL) 2.7 TSH 3rd Generation Pending Hematology WBC (4.5 - 11.5 K/uL) 9.1 RBC (4.00 - 5.20 M/uL) 3.48 Hgb (12.0 - 16.0 gm/dL) 9.8 Hct (36.0 - 46.0 %) 31.9 MCV (80 - 100 fL) 92 MCH (26 - 34 pg) 28 RDW (11.6 - 14.8 %) 18.8 Gran % (53 - 90) 75.6 Lymph % (Auto) (25 - 40 %) 23.5 [place] % (Auto) (3 - 14 %) 0.9 Plt Count, EDTA (150 - 400 K/uL) 202 PUBS MCHC (31 - 37 g/dL) 31 Assessment and Plan Problem List 1. Acute exacerbation of CHF (congestive heart failure) Plan Improved diuresis and improved CXR. BNP remains high. 2. Symptomatic anemia Plan Stable. 3. Pneumonia Plan Stable on appropriate meds.
[2016-11-02 07:09] VITALS: BP 175/65
[2016-11-02 10:35] VITALS: BP 149/60
[2016-11-02 14:36] VITALS: BP 179/56
[2016-11-02 18:51] VITALS: BP 165/66
[2016-11-02 23:01] VITALS: BP 158/62
[2016-11-03] VITALS (7 sets, daily range): BP systolic 136–195; BP diastolic 44–76
--- NOTE | 2016-11-03 19:28 | DIAGNOSTIC IMAGING REPORT ---
REFERRING PHYSICIAN/PROVIDER: Justin Valdez MD CONSULTING MACHINED [employer]S QUALITY INSPECTOR: Nestor Lovelace MD PROCEDURE: M-mode 2D echocardiography with spectral and color flow Doppler TECHNICAL QUALITY: The overall quality of the echo is fair to poor INDICATION: CHF RHYTHM DURING PROCEDURE: Undetermined INTERPRETATIONS: LEFT VENTRICLE: The left ventricle is small in size with the left ventricular end-diastolic dimension of 3.3 cm. The wall thickness is mildly increased at 1.5 cm of the septal wall and 1.7 cm of the posterior wall the ejection fraction is estimated at 55% without any focal wall motion abnormalities noted. Diastolic function could not be accurately assessed RIGHT VENTRICLE: The right ventricle is mildly dilated in size with normal right ventricular systolic function ATRIA: There is biatrial enlargement with an intact atrial septum noted MITRAL VALVE: There is moderate mitral regurgitation noted with the grossly normal mitral valve. AORTIC VALVE: There is severe aortic stenosis noted with an aortic valve area of 0.4 cm2 with peak gradient of 73 mmHg and a mean gradient of 43 mmHg TRICUSPID VALVE: There is moderate to severe tricuspid regurgitation noted. There is severe right ventricular systolic hypertension with an at RVSP of 92 mmHg. PULMONIC VALVE: There is mild pulmonic regurgitation noted GREAT VESSELS: The aortic root is normal in size PERICARDIUM: There is no significant pericardial effusion noted. IMPRESSION: 1. Moderate to severe left ventricular hypertrophy noted 2. Small left ventricle with normal left ventricular systolic function 3. Mildly dilated right ventricle with normal right ventricular systolic function 4. Mild biatrial enlargement 5. Severe aortic stenosis with an aortic valve area of 0.4 cm2 and a mean gradient of 43 mmHg 6. Moderate mitral regurgitation 7. Moderate to severe tricuspid regurgitation 8. Mild pulmonic regurgitation 9. Severely increased right ventricular systolic hypertension (RVSP = 92 mmHg)
[2016-11-04 02:08] VITALS: BP 136/67
[2016-11-04 06:41] VITALS: BP 186/64
--- NOTE | 2016-11-04 07:13 | DIAGNOSTIC IMAGING REPORT ---
PROCEDURE: XR CHEST 1 VIEW INDICATION: chf/pneumonia, follow-up TECHNIQUE: Portable AP view 06:05 a.m. COMPARISON: Chest x-ray 11/02/2016 FINDINGS: No change in the mild cardiomegaly with pulmonary vascular congestion, large right and mild left pleural effusions. No change in the bibasilar infiltrates. Thorax is unremarkable. IMPRESSION: 1. Stable CHF with cardiomegaly, pulmonary vascular congestion and bilateral pleural effusions 2. Stable bibasilar infiltrates versus atelectasis
--- NOTE | 2016-11-04 08:30 | Progress Note ---
Subjective General 86 year old female admitted for CHF exacerbation with cough, leg swelling and shortness of breath. Ill since the end of august and treated with antibioitics without resolution of SOB as outpatient. Sent to rehab center where she had persistent shortness of breath and then developed worsening edema despite being adherent to her medication regimen. Diagnosed with pneumonia several days prior to admission and started on oral antibiotics. Declined at home. Admitted for CHF exacerbation, DM, HTN, Afib, anemia and CKD. Pt treated so far with increasing efforts at diuresis, initially with po lasix, then IV lasix and then po motolozone with IV lasix and fluid restriction. CXR improved slightly but BNP has continued to rise. Patient reports feeling improved with less SOB (on oxygen at 2L/[place] [facility]) but persistent cough. She denies CP , palp, sob, nausea, vomiting or SOB. Nursing reports she had a 12 beat run of Vtach during the night without sx which resolved spontaneously. Nursing also reports increased edema and critical CO2 result on AM labs. Physical Exam Vital Signs / I&Os Vital Signs Date Time Temp Pulse Resp B/P Pulse O2 O2 Flow FiO2 Ox Delivery Rate 11/03 0645 98.4 84 16 157/69 100 Nasal 2.0 Cannula 11/03 0205 97.5 70 19 195/73 100 2.0 11/03 0016 Nasal 2.0 Cannula 11/02 2301 97.9 83 17 158/62 95 Nasal 2.0 Cannula 11/02 2101 2.0 11/02 2045 165/66 02 1851 98.8 85 18 165/66 99 Nasal 2.0 Cannula 11/02 1819 78 11/02 1436 98.4 78 20 179/56 98 Nasal 2.0 Cannula 11/02 1035 98.1 64 19 149/60 100 Nasal 2.0 Cannula 11/02 0914 175/65 11/02 0825 80 11/02 0824 80 11/02 0815 Nasal 2.0 Cannula I&O 11/02 0800 11/02 1600 11/03 0000 Intake Total 200 726 250 Output Total 1550 900 800 Balance -1350 -174 -550 General Appearance Alert, Oriented X3, Cooperative, No acute distress Lungs Shallow breath sounds with wet cough and crackles in lower lungs. Cardiovascular Regular rate and rhythm, 3/6 murmur loudest in apex. Abdomen Normal bowel sounds, Soft, No tenderness Extremities 2+ edema in feet and ankles. SCD in place. Skin No Rashes LAB Results Laboratory Tests 11/03 11/03 0529 0529 Chemistry Plasma Sodium (136 - 145 mmol/L) 144 Plasma Potassium (3.5 - 5.1 mmol/L) 3.7 Plasma Chloride (98 - 107 mmol/L) 99 CO2 (Enzymatic) (21 - 32 mmol/L) 43 BUN (7 - 18 mg/dL) 33 Creatinine (0.6 - 1.3 mg/dL) 1.0 Est GFR ( Amer) (mL/min) >60 Est GFR (Non-Af Amer) (mL/min) 56.01 Glucose (70 - 110 mg/dL) 85 Plasma Calcium (8.5 - 10.1 mg/dL) 8.9 Plasma Magnesium (1.8 - 2.4 mg/dL) 1.9 Total Bilirubin (0.0 - 1.0 mg/dL) 0.6 AST (15 - 37 U/L) 21 ALT (12 - 78 U/L) 24 Alkaline Phosphatase (46 - 116 U/L) 88 B-Natriuretic Peptide (5 - 100 pg/ml) 1460 Total Protein (6.4 - 8.2 g/dL) 6.5 Albumin (3.3 - 5.0 g/dL) 2.6 Hematology WBC (4.5 - 11.5 K/uL) 7.4 RBC (4.00 - 5.20 M/uL) 3.45 Hgb (12.0 - 16.0 gm/dL) 10.1 Hct (36.0 - 46.0 %) 32.0 MCV (80 - 100 fL) 93 MCH (26 - 34 pg) 29 RDW (11.6 - 14.8 %) 17.5 Neut % (Auto) (50 - 75 %) 62.7 Lymph % (Auto) (25 - 40 %) 20.3 [place] % (Auto) (3 - 14 %) 15.1 Eos % (Auto) (0 - 4 %) 1.5 Baso % (Auto) (0 - 2 %) 0.4 Plt Count, EDTA (150 - 400 K/uL) 186 PUBS MCHC (31 - 37 g/dL) 32 Assessment and Plan Problem List 1. Acute exacerbation of CHF (congestive heart failure) Plan Improved diuresis but persistent worsening of BNP and elevated CO2. Will check EKG and cardiac enzymes and obtain echocardiogram. Repeat CXR in AM. 2. Diabetes mellitus Plan Stable with sliding scale. 3. Pneumonia Plan On antibiotics. 4. Symptomatic anemia Plan Improved post transfusion. Yesterdays increase in hemoglobin fits with improved diuresis.
--- NOTE | 2016-11-04 08:35 | Progress Note ---
Subjective General 86 year old female admitted for CHF exacerbation with cough, leg swelling and shortness of breath. Ill since the end of august and treated with antibioitics without resolution of SOB as outpatient. Sent to rehab center where she had persistent shortness of breath and then developed worsening edema despite being adherent to her medication regimen. Diagnosed with pneumonia several days prior to admission and started on oral antibiotics. Declined at home. Admitted for CHF exacerbation, DM, HTN, Afib, anemia and CKD. Pt feeling better but slept poorly. O2 sat decreased during night. Therefore O2 was adjusted and closely monitored, interfering with sleep. Pt alert and feels improved. Coughing less. Physical Exam Vital Signs / I&Os Vital Signs Date Time Temp Pulse Resp B/P Pulse O2 O2 Flow FiO2 Ox Delivery Rate 11/04 0641 98.1 81 15 186/64 94 Nasal 1.0 Cannula 11/04 0557 1.0 11/04 0518 71 28 94 1.0 11/04 0323 86 10 92 11/04 0212 86 10 93 11/04 0208 98.2 88 17 136/67 93 Nasal 1.0 Cannula 11/04 0100 87 21 92 1.0 11/03 2315 98.1 90 22 138/56 89 Nasal 1.0 Cannula 11/03 2300 87 35 90 1.0 11/03 2212 145/58 11/03 2124 88 26 145/58 93 Room Air 11/03 2000 Nasal 1.0 Cannula 11/03 1810 98.1 81 18 153/54 100 Nasal 2.0 Cannula 11/03 1711 80 11/03 1613 76 18 100 2.0 11/03 1530 98.2 88 24 169/76 92 Nasal 2.0 Cannula 11/03 1339 2.0 11/03 1106 2.0 11/03 1030 97.9 70 16 136/44 95 Nasal 2.0 Cannula 11/03 0835 157/69 11/03 0834 80 11/03 0834 80 I&O 11/03 0800 11/03 1600 11/04 0000 Intake Total 325 510 Output Total 1175 900 850 Balance -850 -390 -850 General Appearance Alert, Oriented X3, Cooperative, No acute distress Lungs Scant air movement bilaterally. Cardiovascular Regular rate and rhythm Abdomen Normal bowel sounds, Soft, No tenderness Extremities 1+ edema. Skin No Rashes, No Breakdown, No Significant Lesions LAB Results Laboratory Tests 11/03 11/04 11/04 1604 0587 0525 Chemistry Plasma Sodium (136 - 145 mmol/L) 141 141 Plasma Potassium (3.5 - 5.1 mmol/L) 3.7 3.4 Plasma Chloride (98 - 107 mmol/L) 95 97 CO2 (Enzymatic) (21 - 32 mmol/L) 45 47 BUN (7 - 18 mg/dL) 33 39 Creatinine (0.6 - 1.3 mg/dL) 1.0 1.1 Est GFR ( Amer) (mL/min) >60 >60 Est GFR (Non-Af Amer) (mL/min) 56.01 50.17 Glucose (70 - 110 mg/dL) 160 56 Plasma Calcium (8.5 - 10.1 mg/dL) 9.2 9.0 Plasma Magnesium (1.8 - 2.4 mg/dL) 1.8 1.9 Total Bilirubin (0.0 - 1.0 mg/dL) 0.5 0.5 AST (15 - 37 U/L) 19 23 ALT (12 - 78 U/L) 26 28 Alkaline Phosphatase (46 - 116 U/L) 86 86 Creatine Kinase (24 - 260 U/L) 23 Troponin (0.00 - 1.5 ng/mL) 0.08 B-Natriuretic Peptide (5 - 100 pg/ml) 2220 Total Protein (6.4 - 8.2 g/dL) 7.3 6.8 Albumin (3.3 - 5.0 g/dL) 2.7 2.7 Hematology WBC (4.5 - 11.5 K/uL) 9.6 10.8 RBC (4.00 - 5.20 M/uL) 3.64 3.58 Hgb (12.0 - 16.0 gm/dL) 10.4 10.2 Hct (36.0 - 46.0 %) 33.7 32.8 MCV (80 - 100 fL) 93 92 MCH (26 - 34 pg) 29 29 RDW (11.6 - 14.8 %) 17.9 17.7 Neut % (Auto) (50 - 75 %) 73.6 59.6 Lymph % (Auto) (25 - 40 %) 13.0 23.1 [place] % (Auto) (3 - 14 %) 11.5 15.8 Eos % (Auto) (0 - 4 %) 1.5 1.1 Baso % (Auto) (0 - 2 %) 0.4 0.4 Plt Count, EDTA (150 - 400 K/uL) 194 229 PUBS MCHC (31 - 37 g/dL) 31 31 Assessment and Plan Problem List 1. Acute exacerbation of CHF (congestive heart failure) Plan Clinically improved though BNP is increasing. CXR is stable with effusion and infiltrates. 2. Diabetes mellitus Plan Stable but BG went low this morning. Pt alert so it was treated PO. 3. Pneumonia Plan On appropriate antibiotics. Zithromax complete. 4. Hypokalemia Plan Will supplement.
[2016-11-04 11:02] VITALS: BP 155/56
[2016-11-04 14:25] VITALS: BP 156/55
[2016-11-04 18:39] VITALS: BP 138/42
[2016-11-04 22:21] VITALS: BP 160/49
[2016-11-05 02:45] VITALS: BP 132/78
[2016-11-05 07:11] VITALS: BP 170/58
--- NOTE | 2016-11-05 07:56 | Progress Note ---
Subjective General 86 YO ADMITTED WITH chf EXACERBATION AND PNEUMONIA WITH SLOW CLINICAL IMPROVEMENT. CXR yesterday showed persistent effusions and infiltrates. Pt reports presistent cough. Tolerated some walking during night. Physical Exam Vital Signs / I&Os Vital Signs Date Time Temp Pulse Resp B/P Pulse O2 O2 Flow FiO2 Ox Delivery Rate 11/05 0711 97.5 80 16 170/58 97 Nasal 1.0 Cannula 11/05 0245 98.1 73 16 132/78 96 Nasal 1.0 Cannula 11/05 0141 Nasal 1.0 Cannula 11/04 2221 97.5 76 20 160/49 95 Nasal 1.0 Cannula 11/04 2104 177/65 11/04 1839 97.9 75 20 138/42 98 Nasal 1.0 Cannula 11/04 1738 78 11/04 1640 Nasal 1.0 Cannula 11/04 1425 98.8 68 22 156/55 98 Nasal 1.0 Cannula 11/04 1102 98.1 61 15 155/56 96 Nasal 2.0 Cannula 11/04 0924 2.0 11/04 0855 78 11/04 0855 81 11/04 0855 186/64 I&O 11/04 0800 11/04 1600 11/05 0000 Intake Total 200 600 400 Output Total 350 1150 800 Balance -150 -550 -400 General Appearance Alert, Oriented X3, Cooperative, No acute distress Lungs Scant breath sound, dull in bases. Cardiovascular Regular rate and rhythm, 3/6 apical murmur. Abdomen Soft, No tenderness, No guarding Extremities No edema Skin No Rashes LAB Results Laboratory Tests 11/05 0605 Chemistry Plasma Sodium (136 - 145 mmol/L) 140 Plasma Potassium (3.5 - 5.1 mmol/L) 3.7 Plasma Chloride (98 - 107 mmol/L) 96 CO2 (Enzymatic) (21 - 32 mmol/L) 50 BUN (7 - 18 mg/dL) 39 Creatinine (0.6 - 1.3 mg/dL) 1.0 Est GFR ( Amer) (mL/min) >60 Est GFR (Non-Af Amer) (mL/min) 56.01 Glucose (70 - 110 mg/dL) 76 Plasma Calcium (8.5 - 10.1 mg/dL) 9.1 Plasma Magnesium (1.8 - 2.4 mg/dL) 1.9 Total Bilirubin (0.0 - 1.0 mg/dL) 0.4 AST (15 - 37 U/L) 23 ALT (12 - 78 U/L) 22 Alkaline Phosphatase (46 - 116 U/L) 76 Total Protein (6.4 - 8.2 g/dL) 6.6 Albumin (3.3 - 5.0 g/dL) 2.5 Coagulation INR (0.8 - 1.2) 2.7 Hematology WBC (4.5 - 11.5 K/uL) 6.7 RBC (4.00 - 5.20 M/uL) 3.49 Hgb (12.0 - 16.0 gm/dL) 10.1 Hct (36.0 - 46.0 %) 32.1 MCV (80 - 100 fL) 92 MCH (26 - 34 pg) 29 RDW (11.6 - 14.8 %) 17.8 Neut % (Auto) (50 - 75 %) 55.4 Lymph % (Auto) (25 - 40 %) 23.8 [place] % (Auto) (3 - 14 %) 18.3 Eos % (Auto) (0 - 4 %) 2.2 Baso % (Auto) (0 - 2 %) 0.3 Plt Count, EDTA (150 - 400 K/uL) 179 PUBS MCHC (31 - 37 g/dL) 31 Toxicology Digoxin (0.9 - 2.0 ng/mL) 0.7 Assessment and Plan Problem List 1. Acute exacerbation of CHF (congestive heart failure) Plan Continue diuresis. Ambulate. 2. Diabetes mellitus Plan stable 3. Pneumonia Plan Antinbiotics.
[2016-11-05 11:33] VITALS: BP 149/54
[2016-11-05 15:02] VITALS: BP 153/52
[2016-11-05 19:34] VITALS: BP 147/53
[2016-11-05 22:42] VITALS: BP 154/65
[2016-11-06 03:00] VITALS: BP 155/62
[2016-11-06 07:27] VITALS: BP 137/50
[2016-11-06 11:14] VITALS: BP 137/57
--- NOTE | 2016-11-06 11:26 | Progress Note ---
Subjective General Feeling much improved this am. No SOB or cough. No chest pain. Physical Exam Vital Signs / I&Os Vital Signs Date Time Temp Pulse Resp B/P Pulse O2 O2 Flow FiO2 Ox Delivery Rate 11/06 1114 36.7 70 16 137/57 93 Nasal 1.0 Cannula 11/06 0907 Nasal 1.0 Cannula 11/06 0906 78 11/06 0906 78 11/06 0906 135/55 11/06 0727 36.4 67 16 137/50 98 Nasal 1.0 Cannula 11/06 0300 36.5 78 16 155/62 98 Nasal 1.0 Cannula 11/06 0220 Nasal 1.0 Cannula 11/05 2242 36.7 79 16 154/65 99 Nasal 1.0 Cannula 11/05 2053 147/53 11/05 2005 Nasal 1.0 Cannula 11/05 1934 36.6 85 16 147/53 99 Nasal 1.0 Cannula 11/05 1920 1.0 11/05 1747 85 11/05 1502 36.5 83 16 153/52 99 Nasal 1.0 Cannula 11/05 1133 36.5 78 16 149/54 96 Nasal 1.0 Cannula I&O 11/06 0000 11/05 1600 11/05 0800 Intake Total 50 370 300 Output Total 1102 129 0705 Balance -1200 -280 -1300 General Appearance Alert, Cooperative, No acute distress Lungs Clear to auscultation, Normal air movement Cardiovascular Regular rate and rhythm, Normal S1 and S2, No murmurs, gallops, rubs Abdomen Normal bowel sounds, Soft, No tenderness Extremities 1+ edema bilaterally Assessment and Plan Problem List 1. Acute exacerbation of CHF (congestive heart failure) Plan Improving. Will monitor 24 hrs longer. 2. Pneumonia Plan Improving. Will monitor 24 hrs and consider discharge tomorrow.
[2016-11-06 16:14] VITALS: BP 189/59
[2016-11-06 19:58] VITALS: BP 163/66
[2016-11-06 23:46] VITALS: BP 142/60
[2016-11-07 02:07] VITALS: BP 169/61
[2016-11-07] MEDS ORDERED: CEPHALEXIN500 MG PO (05:53)
[2016-11-07] MEDS ORDERED: METOLAZONE5 MG PO (05:55)
--- NOTE | 2016-11-07 06:00 | Provider's Discharge Care Plan ---
Problem, Goal, Plan Problem List 1. Acute exacerbation of CHF (congestive heart failure) Goals: Improve disease control Instructions: Take meds as directed, Metolozone added for diuresis 2. Diabetes mellitus Goals: Improve disease control Instructions: Take meds as directed 3. Hypertension Goals: Improve disease control Instructions: Take meds as directed 4. Atrial fibrillation Goals: Improve disease control Instructions: Take meds as directed 5. Symptomatic anemia Goals: Improved health/wellness Instructions: Transfusion done. 6. Pneumonia Goals: Improve disease control Instructions: Take meds as directed
--- NOTE | 2016-11-07 06:47 | DISCHARGE SUMMARY ---
ADMIT DATE: 10/29/2016 DISCHARGE DATE: 11/07/2016 ADMITTING DIAGNOSES: 1. Acute exacerbation of congestive heart failure 2. Diabetes mellitus 3. Hypertension 4. Atrial fibrillation 5. Chronic kidney disease DISCHARGE DIAGNOSES: 1. Acute congestive heart failure 2. Pneumonia (diagnosed prior to admission) 3. Diabetes mellitus 4. Hypertension 5. Atrial fibrillation 6. Chronic kidney disease 7. Anemia requiring transfusion, symptomatic HOSPITAL COURSE: The patient was admitted and treated initially with oral diuresis. She did not respond to this, therefore was treated with IV diuresis with furosemide which continued to be relatively ineffective. This was then increased with metolazone with improved results and steady gradual diuresis. The patient's BNP angie to 2200 during the hospitalization. When initial diuresis was unsuccessful, it was also clear that the pneumonia, which had been present prior to admission, was still present following admission. The patient was therefore restarted on IV antibiotics, having been on oral antibiotics prior to admission. She had a steady, but very gradual improvement with those antibiotics, consisting of ceftriaxone and Zithromax, which she tolerated well. She continued to require some oxygen and had been on intermittent home oxygen prior to admission. She desaturated with attempts to entirely wean the oxygen and continue to require 1 liter per nasal prongs. DISPOSITION: Home with [facility] and home oxygen. DISCHARGE INSTRUCTIONS/MEDICATIONS: Cephalexin 500 mg p.o. t.i.d. x5 days. Metolazone 5 mg p.o. daily. The patient was also instructed to continue other medications as prior to admission including Carvedilol 6.25 mg p.o. b.i.d. Hydralazine 25 mg p.o. b.i.d. Levothyroxine 88 mcg p.o. daily. Pravastatin 40 mg p.o. at bedtime. Digoxin 62.5 mcg p.o. daily. Ipratropium/albuterol nebulized q.i.d. p.r.n. shortness of breath. Glargine insulin 23 units subcutaneous at bedtime. Warfarin 3 mg p.o. at bedtime. Isosorbide mononitrate 60 mg p.o. b.i.d. Furosemide 80 mg p.o. b.i.d. Losartan potassium 100 mg p.o. daily. Lispro insulin 6 units with breakfast and lunch and 12 units with dinner. Special instructions: Cardiac diet, low-salt, ambulate with walker, follow up with me in 2 weeks.
[2016-11-07 06:59] VITALS: BP 166/80
[2016-11-07 10:08] VITALS: BP 124/48
== END 2016-11-07 11:45 | disposition home health service (06) | DRG 291 ==
LOC: ED SRH 10:16 → TRANS SRH 12:41 → ACUTE2 SRH 14:15 → ACUTE3 SRH 11-01 12:10 → ACUTE2 SRH 11-04 19:19
PROVIDERS: ADMIT Emergency Medicine Emergency Medical Services
PROC: 30263N1 (ICD-10-PCS; principal; 2016-10-30)
DX: I13.0 Hypertensive heart and chronic kidney disease with heart failure and stage 1 through stage 4 chronic kidney disease, or unspecified chronic kidney disease (principal); I50.9 Heart failure, unspecified; N18.2 Chronic kidney disease, stage 2 (mild); J18.9 Pneumonia, unspecified organism; E11.22 Type 2 diabetes mellitus with diabetic chronic kidney disease; Z79.4 Long term (current) use of insulin; I48.91 Unspecified atrial fibrillation; D63.1 Anemia in chronic kidney disease; E87.6 Hypokalemia; I35.0 Nonrheumatic aortic (valve) stenosis; Z79.01 Long term (current) use of anticoagulants
CPT/HCPCS: 83475; 83738; 83751; 85241; 90001; 90047; 90065; 90074; 90098; 90100; 90155; 90616; 90648; 91004; 91023; 91320; 91544; 92031; 92610; 92720; 93004; 93020; 93140; 94060; 95059

== ENCOUNTER 2016-12-07 10:21 | Outpatient (CLI) | payer OTHER ==
[~2016-12-07 10:21] MED LIST changes: +CEPHALEXIN500 MG PO; +COUMADIN3 MG PO; +COZAAR100 MG PO; +HUMALOG KWI100 MG/ML SC; +IPRATROPIUM BROMIDE/; +ISOSORBIDE MONO60 MG PO; +METOLAZONE5 MG PO
--- NOTE | 2016-12-07 10:42 | DIAGNOSTIC IMAGING REPORT ---
PROCEDURE: XR CHEST 2 VIEW INDICATION: BACTERIAL PNEUMONIA, DBII, CHF TECHNIQUE: PA and lateral views. COMPARISON: None. FINDINGS: Lungs are clear. Heart and mediastinum are normal. Thorax is normal. IMPRESSION: 1. Negative chest.
== END 2016-12-07 23:00 ==
LOC: XR SRH 10:21
DX: J15.9 Unspecified bacterial pneumonia (principal); E11.9 Type 2 diabetes mellitus without complications; I50.9 Heart failure, unspecified
CPT/HCPCS: 90074; 90100; 90185; 91286; 91610; 92690; 93140; 94060; 95059